=== PATIENT | male | born 1940 | race Caucasian/White ===

== ENCOUNTER → 2023-09-24 07:56 | Outpatient (REF) | payer MEDICARE, SELFPAY ==
[2023-09-24 09:51] LABS: % Basophils 1.1 % (0-2); % Eosinophils 2.6 % (0-6); % Immature Granulocytes 0.3 % (0-0.5); % Lymphocytes 22.8 % (20.5-51.1); % Neutrophils 61.2 % (42.2-75.2); Absolute Basophils 0.1 10^3/uL (0-0.2); Absolute Eosinophils 0.2 10^3/uL (0-0.7); Absolute Lymphocytes 1.4 10^3/uL (1.2-3.4); Absolute Monocytes 0.8 10^3/uL (0.1-0.6); Absolute Neutrophils 3.8 10^3/uL (1.4-6.5); Hematocrit 37.7 % (39.0-52.0); Hemoglobin 11.8 g/dL (13.0-18.0); Mean Corp Hgb Conc. 31.3 g/dL (33.0-37.0); Mean Corpuscular Hgb 25.7 pg (27.0-31.0); Mean Corpuscular Volume 82.1 fL (80.0-94.0); Mean Platelet Volume 10.5 fL (7.4-10.4); Nucleated Red Blood Cells % 0 % (-); Platelet Count 191 10^3/uL (130-400); Red Blood Cell Count 4.59 10^6/uL (4.70-6.10); Red Cell Dist. Width 14.9 % (11.5-14.5); White Blood Cell Count 6.2 10^3/uL (4.8-10.8)
[2023-09-24 10:20] LABS: ALT (SGPT) 18 U/L (0-50); AST (SGOT) 28 U/L (17-59); Albumin 4.1 g/dl (3.5-5.0); Alkaline Phosphatase 89 U/L (38-126); Blood Urea Nitrogen 24 mg/dl (9-20); Calcium 9.1 mg/dl (8.4-10.2); Carbon Dioxide 27 mmol/L (22-30); Chloride 105 mmol/L (98-107); Glucose 116 mg/dl (70-99); HDL Cholesterol 26 mg/dl; LDL Cholesterol, Calculated 65 mg/dl; Sodium 140 mmol/L (135-145); Total Bilirubin 0.6 mg/dl (0.2-1.3); Total Cholesterol 127 mg/dl (50-199); Total Protein 7.3 g/dl (6.3-8.2); Triglyceride 182 mg/dl (10-149); Very Low Density Lipoprotein 36 mg/dl (0-30); eGFR > 60.00
[2023-09-24 11:06] LABS: Potassium 4.5 mmol/L (3.5-5.1)
[2023-09-24 12:13] LABS: Glycohemoglobin (HgbA1c) 7.2 % (4.0-5.6)
[2023-09-27 14:18] LABS: Iron 68 ug/dl (49-181)
[2023-09-27 14:28] LABS: Percent Saturation 20 % (20-50); Total Iron Binding Capacity 330 ug/dl (261-462)
[2023-09-27 15:48] LABS: Folate 8.9 ng/ml (2.76-20); Vitamin B12 189 pg/ml (239-931)
== END ==
LOC: HWLAB 07:56
PROVIDERS: ATTENDING PHYSICIAN Internal Medicine
DX: E11.59 Type 2 diabetes mellitus with other circulatory complications (principal); I10 Essential (primary) hypertension; I25.10 Atherosclerotic heart disease of native coronary artery without angina pectoris
CPT/HCPCS: 36415; 80053; 80061; 82607; 82746; 83036; 83540; 83550; 85025

== ENCOUNTER → 2023-10-29 06:34 | Day surgery (SDC) | payer MEDICARE, SELFPAY ==
[2023-10-29 09:25] LABS: Glucose - Point of Care 118 mg/dl (70-99)
== END ==
LOC: GI 06:34
PROVIDERS: ATTENDING PHYSICIAN Specialist
DX: Z12.11 Encounter for screening for malignant neoplasm of colon (principal); Z86.010 Personal history of colon polyps; K63.5 Polyp of colon
CPT/HCPCS: 45380; 88305; 82962

== ENCOUNTER → 2024-02-03 08:06 | Outpatient (REF) | payer MEDICARE, SELFPAY ==
[2024-02-03 09:52] LABS: ALT (SGPT) 14 U/L (0-50); AST (SGOT) 22 U/L (17-59); Albumin 4.5 g/dl (3.5-5.0); Alkaline Phosphatase 85 U/L (38-126); Direct Bilirubin 0.4 mg/dl (0.0-0.4); Glucose 128 mg/dl (70-99); HDL Cholesterol 29 mg/dl; LDL Cholesterol, Calculated 60 mg/dl; Total Bilirubin 0.8 mg/dl (0.2-1.3); Total Cholesterol 130 mg/dl (50-199); Total Protein 7.5 g/dl (6.3-8.2); Triglyceride 209 mg/dl (10-149); Very Low Density Lipoprotein 41 mg/dl (0-30)
[2024-02-03 14:25] LABS: Glycohemoglobin (HgbA1c) 7.1 % (4.0-5.6)
== END ==
LOC: HWLAB 08:06
PROVIDERS: ATTENDING PHYSICIAN Internal Medicine
DX: E11.59 Type 2 diabetes mellitus with other circulatory complications (principal); Z79.4 Long term (current) use of insulin; E78.5 Hyperlipidemia, unspecified; I10 Essential (primary) hypertension
CPT/HCPCS: 36415; 80061; 80076; 82947; 83036

== ENCOUNTER 2024-03-09 01:27 | Inpatient (IN) | payer MEDICARE, SELFPAY ==
[2024-03-08 21:31] VITALS: BP 162/84
[2024-03-08 21:44] VITALS: BMI 27.7
[2024-03-08 21:45] VITALS: BP 168/79
[2024-03-08 22:00] VITALS: BP 167/77
[2024-03-08 22:11] LABS: % Basophils 1.2 % (0-2); % Eosinophils 1.7 % (0-6); % Immature Granulocytes 0.3 % (0-0.5); % Lymphocytes 24.6 % (20.5-51.1); % Monocytes 11.2 % (1.7-9.3); Absolute Basophils 0.1 10^3/uL (0-0.2); Absolute Eosinophils 0.1 10^3/uL (0-0.7); Absolute Lymphocytes 1.7 10^3/uL (1.2-3.4); Absolute Monocytes 0.8 10^3/uL (0.1-0.6); Absolute Neutrophils 4.2 10^3/uL (1.4-6.5); Hematocrit 37.4 % (39.0-52.0); Hemoglobin 12.1 g/dL (13.0-18.0); Mean Corp Hgb Conc. 32.4 g/dL (33.0-37.0); Mean Corpuscular Hgb 26.2 pg (27.0-31.0); Nucleated Red Blood Cells % 0 % (-); Platelet Count 192 10^3/uL (130-400); Red Blood Cell Count 4.62 10^6/uL (4.70-6.10); Red Cell Dist. Width 15.8 % (11.5-14.5); White Blood Cell Count 6.9 10^3/uL (4.8-10.8)
[2024-03-08 22:27] LABS: ALT (SGPT) 16 U/L (0-50); AST (SGOT) 23 U/L (17-59); Albumin 4.7 g/dl (3.5-5.0); Alkaline Phosphatase 82 U/L (38-126); Blood Urea Nitrogen 26 mg/dl (9-20); Calcium 9.5 mg/dl (8.4-10.2); Carbon Dioxide 23 mmol/L (22-30); Chloride 105 mmol/L (98-107); Estimated Creatinine Clearance 49 ml/min; Glucose 183 mg/dl (70-99); Potassium 4.6 mmol/L (3.5-5.1); Sodium 139 mmol/L (135-145); Total Bilirubin 0.5 mg/dl (0.2-1.3); Total Protein 7.6 g/dl (6.3-8.2); eGFR > 60.00
[2024-03-08 22:40] LABS: Troponin I 0.195 ng/ml
[2024-03-08 23:00] VITALS: BP 161/78
--- NOTE | 2024-03-08 23:19 | ED.GENMED ---
History of Present Illness
<Sandy Bustamante MD, Resident - Last Filed: 03/08/24 23:55>
General
Chief Complaint: Cardiac Symptoms
Source: patient and spouse
Time Seen by Provider: 03/08/24 22:43
History of Present Illness
History of Present Illness:
83-year-old male, Mr. Elijah John with past medical history significant for CAD, CABG X4, hypertension, hyperlipidemia, diabetes, presented to the ER reporting symptoms of indigestion- belching, dyspepsia. Patient reports that his symptoms
started 1 week ago, no experiences indigestion half an hour after his meal and the last 4 2 to 3 hours. Patient has been taking omeprazole and Pepcid and states he has increased the dose of omeprazole twice daily in the last couple of days.
Patient also mentions that he has been feeling queasy and fatigued. The symptoms get aggravated when lying down flat and relieved when sitting up. No history of chest pain, lightheadedness/dizziness, vision disturbances, palpitations, abdominal
pain, weakness/numbness/tingling. Family history of CAD and CABG in mother, HI in father. Patient is a former smoker.
Past History
<Sandy Bustamante MD, Resident - Last Filed: 03/08/24 23:55>
Past History
ED Past Medical History: CAD, Hypercholesterolemia, IDDM and Other (prostate: takes tamulosin); Negative HI
ED Past Surgical History: Appendectomy, Cardiac (bypass 2003), Orthopedic and Urological
Social History
Tobacco: Former smoker
Alcohol: None
Drug: None
Personal:
Living: with family
Employment: Retired
Family History
Family History: Diabetes
Phy Exam
<Sandy Bustamante MD, Resident - Last Filed: 03/08/24 23:55>
Physical Exam
Physical Exam:
GEN: Well appearing, NAD, WDWN
Eyes: PERRLA, EOMs intact, no scleral icterus
HENT: NCAT, oral mucosa moist, no JVD, no cervical adenopathy.
Lungs: CTAB, no wheezes, rales, rhonchi, normal chest wall excursion
Cardiac: RRR, s1 s2+, no peripheral edema. Radial pulses 2+ bilat
Abdomen: S, NT, ND, NABS, no masses or hepatosplenomegaly
Neuro: AO x 3, no focal deficits to BUE/BLE, normal sensation throughout
Skin: No rashes, petechiae. Normal color, no pallor or jaundice.
Psych: Calm, cooperative, proper hygiene
Scores
<Albino Mcdaniel MD - Last Filed: 03/09/24 14:06>
Heart Score for Chest Pain Patients
STEMI patient?: No
History: Moderately Suspicious
ECG: Normal
Age: >/= 65 years
Risk Factors: >/= 3 Risk Factors or History of CAD
Troponin: >1 - <3 x Normal Limit
Heart Score for Chest Pain Patients: 6
Heart Score Risk: 20.3% MACE over next 6 weeks
Course
<Sandy Bustamante MD, Resident - Last Filed: 03/08/24 23:55>
Orders/Labs/Results
Orders:
Orders
03/08/24 21:22
Electrocardiogram (*1) Urgent
Reason for Study: Chest Pain
EKG- Treatment ONCE
03/08/24 21:59
CMP [Comprehensive Metabolic Panel] Urgent
Complete Blood Count/With Diff Urgent
Troponin I Urgent
03/08/24 23:40
PTT Urgent
Comment: Obtain baseline before beginning heparin infusion if not already collected
Aspirin 243 mg PO DAILY STA
Pharmacy Request to Place See Dose Instructions PO NOW STA
Discontinue all Active Warfarin orders?: Yes
Nursing to Place Non Medication Order As Directed
Physician Order: PTT 6 hours after initial start of Heparin infusion
Above order entered?: Yes
03/08/24 23:45
Heparin 36536 Units/250 ml 25,000 units in 250 ml IV PER PROTOCOL
Weight to be used for heparin protocol in kilograms (kg):: 80.1
Protocol:: Cardiac Tx/Acute Coronary
PTT Goal Range to be used:: PTT 73 to 111 seconds
Order type:: Initial
INITIAL Infusion Dose (UNITS/KG/hr) & then follow protocol:: 12 units/kg/hr
Infusion Dose in UNITS/hr & then follow protocol (UNITS/hr):: 950
INFUSION RATE in mL/hr & then follow protocol (mL/hr):: 9.5
PTT less than or equal to 64 seconds:: Increase rate by 200 units/hr (+ 2 mL/hr)
PTT 64.1 to 72.9 seconds:: Increase rate by 100 units/hr (+ 1 mL/hr)
PTT 73 to 111 seconds:: Target Range. No change in rate.
PTT 111.1 to 130.9 seconds:: Decrease rate by 100 units/hr (- 1 mL/hr)
PTT 131 to 199.9 seconds:: HOLD for 1 hr. Then decrease rate by 200 units/hr (- 2 mL/hr)
PTT greater than or equal to 200 seconds:: HOLD for 2 hrs & Notify Provider. Then decrease by 200 units/hr (-
2 mL/hr)
Lab follow-up:: Each change, PTT q6h until 2 consecutive are therapeutic. Then PTT
daily.
Pharmacy Request to Place See Dose Instructions IV DIRECTED
03/09/24 00:41
Aspirin Chewable [Low Strength Aspirin] 243 mg PO NOW STA
03/09/24 01:08
Admit/Transfer Patient As Directed
Co-Sign Provider:
Level of Care: Inpatient admission
Assign to:: IVU
Physician / Group: Herbert
Diagnosis: ACS / NSTEMI
Reason for Hospitalization: ACS / NSTEMI
Expected length of stay greater than two midnights?: Yes
ELOS- Estimated Length of Stay in days: 3
I certify the patient meets the requirements for IP care: Yes
PRN Pain Medication Management As Directed
May give lesser potent ordered pain med per pt: Yes
preference::
Protocol:: Medication orders for pain may be administered in a
manner that supports deferring to patient preference
when the pt is:
- Requesting an ordered lesser potent pain medication.
Least to most potent pain medications are defined
as: acetaminophen < NSAID < tramadol < opioids
(morphine, oxycodone, hydromorphone).
- Requesting a lesser dose of the same medication IF
ORDERED.
- Requesting a less intrusive route of administration
if both routes are prescribed by the provider (PO <
IV).
03/09/24 01:10
Code Status As Directed
Resuscitation Status: Full Code
03/09/24 01:20
Heparin 4,000 units IV NOW STA
Nursing to Place Non Medication Order As Directed
Physician Order: PTT 6 hours after initial start of Heparin infusion
Above order entered?: Yes
03/09/24 03:04
Acetaminophen [Tylenol] 650 mg PO Q4HPRN PRN
Dextrose 50%-Water [Dextrose 50% Syringe] 12.5 grams IV [id number] PRN
Glucagon [GlucaGen] 1 mg IM PRN PRN
Morphine Sulfate 2 mg IV Q4HPRN PRN
Nitroglycerin Sublingual [Nitrostat (Sublingual)] 0.4 mg SL [id number] PRN
03/09/24 03:04
CARDIOLOGY CONSULT Routine
Consulting Provider: Gallo Sahni
Was physician already notified: Yes
Reason for consult: ACS / NSTEMI
Heparin Protocol- PTT Orders As Directed
PTT per Heparin protocol: -Obtain CBC and baseline PTT - if not already collected.
-Obtain PTT 6 hours from start of infusion. Then, every 6 hours until 2 consecutive
PTT's are therapeutic. Then, PTT Daily.
-With each rate change, obtain PTT every 6 hours until 2 consecutive PTT's are
therapeutic. Then, PTT Daily.
Activity As Directed
Activity Level: Bedrest
Bedside Glucose Monitoring As Directed
Frequency: AC&HS
Additional Instructions:: Change to q6h if pt on TPN, tube feeding or not eating
Bladder Scan As Directed
Follow Bladder Retention/Intermittent Cath Algorithm?: Yes
PRN if no void in __ hours: 6
Frequency: Per Retention Algorithm
If Bladder Scan Result >: 400
then:: Straight cath
EKG with chest pain [ECG as needed] As Directed
ECG as needed for:: Chest Pain
I/O [Intake/ Output] As Directed
Frequency: Per unit guidelines
Notify MD As Directed
Notify physician if: PTT is greater than or equal to 200.
Straight Cath As Directed
Frequency: Per Retention Algorithm
Additional Instructions: straight cath as needed per acute urinary retention algorithm for 24 hrs
Additional Instructions: for bladder scan greater than 400 mL
Vital Signs As Directed
Frequency: Per unit guidelines
Weight As Directed
Frequency: Daily
Oxygen Therapy [O2 Therapy] [RESP] Routine
Titrate/Wean O2 to maintain O2 sat greater than (%): 94
03/09/24 03:47
Basic Metabolic Panel IN AM
Cardiovascular Evaluation IN AM
Glycohemoglobin (HgbA1c) IN AM
Troponin I Q6H
03/09/24 06:00
EKG [Electrocardiogram (*1)] IN AM
Reason for Study: Chest Pain
NPO
Allow oral meds: Yes
Allow clear liquids: Sips of Clears
03/09/24 07:30
Insulin Aspart Corrective Mod [Novolog Flexpen-Moderate Resistance] See Protocol SC AC
03/09/24 08:00
Amlodipine [Norvasc] 10 mg PO DAILY
Aspirin Chewable [Low Strength Aspirin] 81 mg PO DAILY
Aspirin Low Dose EC [Aspir Low (Enteric Coated)] 81 mg PO DAILY
Tamsulosin [Flomax] 0.4 mg PO DAILY
03/09/24 08:34
Troponin I Q6H
03/09/24 15:04
Troponin I Q6H
03/09/24 22:00
Atorvastatin [Lipitor] 40 mg PO HS
Insulin Glargine Lantus [Lantus] 60 units SC HS
03/11/24 06:00
Complete Blood Count/No Diff Q2D
Comment: notify provider: Platelet count < 130,000 or decrease by 50% from baseline
03/13/24 06:00
Complete Blood Count/No Diff Q2D
Comment: notify provider: Platelet count < 130,000 or decrease by 50% from baseline
03/15/24 06:00
Complete Blood Count/No Diff Q2D
Comment: notify provider: Platelet count < 130,000 or decrease by 50% from baseline
03/17/24 06:00
Complete Blood Count/No Diff Q2D
Comment: notify provider: Platelet count < 130,000 or decrease by 50% from baseline
03/19/24 06:00
Complete Blood Count/No Diff Q2D
Comment: notify provider: Platelet count < 130,000 or decrease by 50% from baseline
03/21/24 06:00
Complete Blood Count/No Diff Q2D
Comment: notify provider: Platelet count < 130,000 or decrease by 50% from baseline
03/23/24 06:00
Complete Blood Count/No Diff Q2D
Comment: notify provider: Platelet count < 130,000 or decrease by 50% from baseline
03/25/24 06:00
Complete Blood Count/No Diff Q2D
Comment: notify provider: Platelet count < 130,000 or decrease by 50% from baseline
Abnormal Lab Results
03/08/24 03/09/24
21:59 00:51
RBC 4.62 L 10^6/uL
(4.70-6.10)
Hgb 12.1 L g/dL
(13.0-18.0)
Hct 37.4 L %
(39.0-52.0)
MCH 26.2 L pg
(27.0-31.0)
MCHC 32.4 L g/dL
(33.0-37.0)
RDW 15.8 H %
(11.5-14.5)
Absolute Monos (auto) 0.8 H 10^3/uL
(0.1-0.6)
Monocytes % 11.2 H %
(1.7-9.3)
APTT 38.5 H Sec
(23.4-35.0)
BUN 26 H mg/dl
(9-20)
Glucose 183 H mg/dl
(70-99)
Troponin I 0.195 H* ng/ml
03/08/24 21:59
03/08/24 21:59
Vital Signs
Initial and Last Documented VS:
Initial Vital Signs
Temp Pulse Resp BP Pulse Ox
97.7 F 74 20 162/84 100
03/08/24 21:31 03/08/24 21:31 03/08/24 21:31 03/08/24 21:31 03/08/24 21:31
Last Documented Vital Signs
Temp Pulse Resp BP Pulse Ox
98.5 F 82 20 137/74 95
03/09/24 12:21 03/09/24 12:21 03/09/24 07:14 03/09/24 12:21 03/09/24 12:21
<Albino Mcdaniel MD - Last Filed: 03/09/24 14:06>
Orders/Labs/Results
Orders:
Orders
03/08/24 21:22
Electrocardiogram (*1) Urgent
Reason for Study: Chest Pain
EKG- Treatment ONCE
03/08/24 21:59
CMP [Comprehensive Metabolic Panel] Urgent
Complete Blood Count/With Diff Urgent
Troponin I Urgent
03/08/24 23:40
PTT Urgent
Comment: Obtain baseline before beginning heparin infusion if not already collected
Aspirin 243 mg PO DAILY STA
Pharmacy Request to Place See Dose Instructions PO NOW STA
Discontinue all Active Warfarin orders?: Yes
Nursing to Place Non Medication Order As Directed
Physician Order: PTT 6 hours after initial start of Heparin infusion
Above order entered?: Yes
03/08/24 23:45
Heparin 84524 Units/250 ml 25,000 units in 250 ml IV PER PROTOCOL
Weight to be used for heparin protocol in kilograms (kg):: 80.1
Protocol:: Cardiac Tx/Acute Coronary
PTT Goal Range to be used:: PTT 73 to 111 seconds
Order type:: Initial
INITIAL Infusion Dose (UNITS/KG/hr) & then follow protocol:: 12 units/kg/hr
Infusion Dose in UNITS/hr & then follow protocol (UNITS/hr):: 950
INFUSION RATE in mL/hr & then follow protocol (mL/hr):: 9.5
PTT less than or equal to 64 seconds:: Increase rate by 200 units/hr (+ 2 mL/hr)
PTT 64.1 to 72.9 seconds:: Increase rate by 100 units/hr (+ 1 mL/hr)
PTT 73 to 111 seconds:: Target Range. No change in rate.
PTT 111.1 to 130.9 seconds:: Decrease rate by 100 units/hr (- 1 mL/hr)
PTT 131 to 199.9 seconds:: HOLD for 1 hr. Then decrease rate by 200 units/hr (- 2 mL/hr)
PTT greater than or equal to 200 seconds:: HOLD for 2 hrs & Notify Provider. Then decrease by 200 units/hr (-
2 mL/hr)
Lab follow-up:: Each change, PTT q6h until 2 consecutive are therapeutic. Then PTT
daily.
Pharmacy Request to Place See Dose Instructions IV DIRECTED
03/09/24 00:41
Aspirin Chewable [Low Strength Aspirin] 243 mg PO NOW STA
03/09/24 01:08
Admit/Transfer Patient As Directed
Co-Sign Provider:
Level of Care: Inpatient admission
Assign to:: IVU
Physician / Group: Herbert
Diagnosis: ACS / NSTEMI
Reason for Hospitalization: ACS / NSTEMI
Expected length of stay greater than two midnights?: Yes
ELOS- Estimated Length of Stay in days: 3
I certify the patient meets the requirements for IP care: Yes
PRN Pain Medication Management As Directed
May give lesser potent ordered pain med per pt: Yes
preference::
Protocol:: Medication orders for pain may be administered in a
manner that supports deferring to patient preference
when the pt is:
- Requesting an ordered lesser potent pain medication.
Least to most potent pain medications are defined
as: acetaminophen < NSAID < tramadol < opioids
(morphine, oxycodone, hydromorphone).
- Requesting a lesser dose of the same medication IF
ORDERED.
- Requesting a less intrusive route of administration
if both routes are prescribed by the provider (PO <
IV).
03/09/24 01:10
Code Status As Directed
Resuscitation Status: Full Code
03/09/24 01:20
Heparin 4,000 units IV NOW STA
Nursing to Place Non Medication Order As Directed
Physician Order: PTT 6 hours after initial start of Heparin infusion
Above order entered?: Yes
03/09/24 03:04
Acetaminophen [Tylenol] 650 mg PO Q4HPRN PRN
Dextrose 50%-Water [Dextrose 50% Syringe] 12.5 grams IV [id number] PRN
Glucagon [GlucaGen] 1 mg IM PRN PRN
Morphine Sulfate 2 mg IV Q4HPRN PRN
Nitroglycerin Sublingual [Nitrostat (Sublingual)] 0.4 mg SL [id number] PRN
03/09/24 03:04
CARDIOLOGY CONSULT Routine
Consulting Provider: Gallo Sahni
Was physician already notified: Yes
Reason for consult: ACS / NSTEMI
Heparin Protocol- PTT Orders As Directed
PTT per Heparin protocol: -Obtain CBC and baseline PTT - if not already collected.
-Obtain PTT 6 hours from start of infusion. Then, every 6 hours until 2 consecutive
PTT's are therapeutic. Then, PTT Daily.
-With each rate change, obtain PTT every 6 hours until 2 consecutive PTT's are
therapeutic. Then, PTT Daily.
Activity As Directed
Activity Level: Bedrest
Bedside Glucose Monitoring As Directed
Frequency: AC&HS
Additional Instructions:: Change to q6h if pt on TPN, tube feeding or not eating
Bladder Scan As Directed
Follow Bladder Retention/Intermittent Cath Algorithm?: Yes
PRN if no void in __ hours: 6
Frequency: Per Retention Algorithm
If Bladder Scan Result >: 400
then:: Straight cath
EKG with chest pain [ECG as needed] As Directed
ECG as needed for:: Chest Pain
I/O [Intake/ Output] As Directed
Frequency: Per unit guidelines
Notify MD As Directed
Notify physician if: PTT is greater than or equal to 200.
Straight Cath As Directed
Frequency: Per Retention Algorithm
Additional Instructions: straight cath as needed per acute urinary retention algorithm for 24 hrs
Additional Instructions: for bladder scan greater than 400 mL
Vital Signs As Directed
Frequency: Per unit guidelines
Weight As Directed
Frequency: Daily
Oxygen Therapy [O2 Therapy] [RESP] Routine
Titrate/Wean O2 to maintain O2 sat greater than (%): 94
03/09/24 03:47
Basic Metabolic Panel IN AM
Cardiovascular Evaluation IN AM
Glycohemoglobin (HgbA1c) IN AM
Troponin I Q6H
03/09/24 06:00
EKG [Electrocardiogram (*1)] IN AM
Reason for Study: Chest Pain
NPO
Allow oral meds: Yes
Allow clear liquids: Sips of Clears
03/09/24 07:30
Insulin Aspart Corrective Mod [Novolog Flexpen-Moderate Resistance] See Protocol SC AC
03/09/24 08:00
Amlodipine [Norvasc] 10 mg PO DAILY
Aspirin Chewable [Low Strength Aspirin] 81 mg PO DAILY
Aspirin Low Dose EC [Aspir Low (Enteric Coated)] 81 mg PO DAILY
Tamsulosin [Flomax] 0.4 mg PO DAILY
03/09/24 08:34
Troponin I Q6H
03/09/24 15:04
Troponin I Q6H
03/09/24 22:00
Atorvastatin [Lipitor] 40 mg PO HS
Insulin Glargine Lantus [Lantus] 60 units SC HS
03/11/24 06:00
Complete Blood Count/No Diff Q2D
Comment: notify provider: Platelet count < 130,000 or decrease by 50% from baseline
03/13/24 06:00
Complete Blood Count/No Diff Q2D
Comment: notify provider: Platelet count < 130,000 or decrease by 50% from baseline
03/15/24 06:00
Complete Blood Count/No Diff Q2D
Comment: notify provider: Platelet count < 130,000 or decrease by 50% from baseline
03/17/24 06:00
Complete Blood Count/No Diff Q2D
Comment: notify provider: Platelet count < 130,000 or decrease by 50% from baseline
03/19/24 06:00
Complete Blood Count/No Diff Q2D
Comment: notify provider: Platelet count < 130,000 or decrease by 50% from baseline
03/21/24 06:00
Complete Blood Count/No Diff Q2D
Comment: notify provider: Platelet count < 130,000 or decrease by 50% from baseline
03/23/24 06:00
Complete Blood Count/No Diff Q2D
Comment: notify provider: Platelet count < 130,000 or decrease by 50% from baseline
03/25/24 06:00
Complete Blood Count/No Diff Q2D
Comment: notify provider: Platelet count < 130,000 or decrease by 50% from baseline
Abnormal Lab Results
03/08/24 03/09/24
21:59 00:51
RBC 4.62 L 10^6/uL
(4.70-6.10)
Hgb 12.1 L g/dL
(13.0-18.0)
Hct 37.4 L %
(39.0-52.0)
MCH 26.2 L pg
(27.0-31.0)
MCHC 32.4 L g/dL
(33.0-37.0)
RDW 15.8 H %
(11.5-14.5)
Absolute Monos (auto) 0.8 H 10^3/uL
(0.1-0.6)
Monocytes % 11.2 H %
(1.7-9.3)
APTT 38.5 H Sec
(23.4-35.0)
BUN 26 H mg/dl
(9-20)
Glucose 183 H mg/dl
(70-99)
Troponin I 0.195 H* ng/ml
03/08/24 21:59
03/08/24 21:59
Vital Signs
Initial and Last Documented VS:
Initial Vital Signs
Temp Pulse Resp BP Pulse Ox
97.7 F 74 20 162/84 100
03/08/24 21:31 03/08/24 21:31 03/08/24 21:31 03/08/24 21:31 03/08/24 21:31
Last Documented Vital Signs
Temp Pulse Resp BP Pulse Ox
98.5 F 82 20 137/74 95
03/09/24 12:21 03/09/24 12:21 03/09/24 07:14 03/09/24 12:21 03/09/24 12:21
<Sandy Bustamante MD, Resident - Last Filed: 03/08/24 23:55>
MDM/Problems Addressed
Differential Diagnosis Includes:
STEMI versus NSTEMI versus GERD versus gastritis versus PUD.
MDM/Problems Addressed:
Patient is hypertensive at presentation.
Troponins elevated at 0.195
NSTEMI
Patient started on aspirin to 243 mg, patient states he took 1 baby aspirin in the morning today.
Heparin drip started.
N.p.o.
Cardiology consulted, possible cath tomorrow
Hospitalist notified.
<Sandy Bustamante MD, Resident - Last Filed: 03/08/24 23:55>
*Critical Care Note
Total Time (30-74mins, 75-104mins- exclusive of procedures): Not Applicable
ED Attending Note
<Sandy Bustamante MD, Resident - Last Filed: 03/08/24 23:55>
-
Portions of this chart may have been created with voice recognition software.� Occasional wrong word or��sound alike� substitutions may have occurred due to the inherent limitations of voice recognition software.
<Albino Mcdaniel MD - Last Filed: 03/09/24 14:06>
ED Attending Note
Patient seen and examined by attending physician: Yes
ED Attending Note:
Patient with history of CABG 20 years ago, presents to ED secondary to intermittent chest pain over the past 1 week, but worse tonight. Chest pain described as indigestion, in the middle of chest, with radiation to throat, associated with shortness
of breath and clammy appearance. Symptoms appear to be brought on after meals. However, this morning, indigestion sensation started prior to leaving the house to attend [id number], and returned after the show. Patient told his , that he did
not feel well at that time, and his found patient to be uncomfortable with clammy appearance and pale appearing. At the time of evaluation ED, patient states that his symptoms have resolved. Denies fever or chills. Denies recent illness.
Denies recent change in medications or diet. Denies recent travel or surgery. Denies leg pain or swelling.
Physical Exam
General: no apparent distress, not acutely ill. afebrile
Head: nc/at. eomi
Neck: supple. no meningeal signs.
Heart: s1/s2 regular rate and rhythm, no murmur. equal radial pulses.
Lungs: no acute respiratory distress. clear bilaterally
Abdomen: normal bowel sounds. not tender.
Neuro: alert and oriented. no focal neurological deficits
Skin: no rash
Psychiatric: well kept. interactive and cooperative
Extremities: no edema. no calf tenderness.
History and exam concerning for unstable angina, with history of coronary artery disease. Blood work noted, significant for normal troponin.
Discussed with on-call doctor of pharmacy, Dr. Sahni. Patient will be admitted on heparin protocol.
Discharge Plan
Departure
Patient Disposition: Admit
Date of Disposition: 03/08/24
Time of Disposition: 23:38
Admit to: Telemetry
Presentation/result/management discussed w/ accepting MD/DO: Hospitalist
Patient with high blood pressure during this ER visit?: Yes
Condition: Fair
Discharge Problem:
NSTEMI
Interventions
Interventions:
*Risk Screen - Suicide Last Done: 03/09/24 03:07
*General Assessment Last Done: 03/08/24 21:46
*Neglect/Abuse Screening Last Done: 03/08/24 21:31
ED- Fall Risk Assessment Last Done: 03/08/24 21:46
*ED COVID-19 Vaccine History Last Done: 03/09/24 03:07
*Nursing Disposition Last Done: 03/09/24 02:50
ED- Pulmonary Assessment Last Done: 03/08/24 21:46
ED- Cardiac Assessment Last Done: 03/08/24 21:46
Discharge Date and Time
Discharge Date/Time: 03/09/24 02:50
[2024-03-08 23:49] VITALS: BMI 26.9
[2024-03-09] VITALS (20 sets, daily range): BP systolic 93–176; BP diastolic 61–83; BMI 26.8
[2024-03-09] MEDS: LOW STRENGTH ASPIRIN 243 MG PO (00:47)
--- NOTE | 2024-03-09 01:12 | HPS.HSE ---
Family Physician
-
Family Physician: Jacobo Blood
Chief Complaint
-
Indigestion
History of Present Illness
Patient is an 83y M with PMH significant for ASCVD, hypertension and DM-II who presents to ED complaining of severe indigestion. Patient states that he has had worsening symptoms of indigestion for the past week or so. he describes discomfort
in the upper chest / throat area that tends to be worse after eating. He describes frequent belching without significant improvement in his symptoms. He admits to feeling somewhat SOB, clammy / sweaty during these episodes. He denies N/V,
syncope, etc.
Patient felt poorly today and his symptoms worsened after eating a turkey sandwich for dinner this evening.
He presented to the ED for further evaluation and is noted to have elevated troponin, changes in his EKG. Symptoms have since improved here in the ED.
Patient has a prior h/o CABG x 4 (2003) but denies any prior history of similar symptoms to this.
His most recent medication change was an increase in his amlodipine dose from 5mg daily to 10mg daily. This was about 3 weeks ago.
Medical History
Past Medical History
Past Medical History: Reports Other
Additional Past Medical History:
ASCVD
Hypertension
DM-II
Post-Op A-Fib (After CABG)
GERD / Hiatal Hernia / Schatzki's Ring
Colon Polyps
BPH
Past Surgical History: Reports Other
Additional Past Surgical History:
CABG x 4 (2003)
Left Testicular Torsion Surgery
Appendectomy
Cataracts
Robotic Partial Prostatectomy
Social History
Tobacco: Former Smoker (Quit smoking 40 years ago. Approx 20 pack years total.)
Alcohol: Occasional
Drug: None
Family History
Family History: Other (Mother / Father: CAD)
Allergies / Home Medications
Allergies reflects when Allergies were last updated in [employer].
Home Medications with original date entered in [employer]
Allergy/Medication List:
Allergies
Allergy/AdvReac Type Severity Reaction Status Date / Time
NKA - No Known Allergies Allergy Unknown Uncoded 03/08/24 21:34
Home Medications
aspirin 81 mg tablet,delayed release 81 mg PO DAILY 05/20/14
insulin glargine 100 unit/mL subcutaneous solution (Lantus U-100 Insulin) 70 units SC HS 05/20/14
omeprazole 20 mg capsule,delayed release 20 mg PO DAILY 05/20/14
amlodipine 5 mg tablet 10 mg PO DAILY 07/17/17
atorvastatin 20 mg tablet 10 mg PO HS 05/11/21
fluticasone furoate 100 mcg-vilanterol 25 mcg/dose inhalation powder (Breo Ellipta) 1 puff inhalation R DAILYPRN PRN sob 05/11/21
fluticasone propionate 50 mcg/actuation nasal spray,suspension 2 spray intranasal DAILYPRN PRN allergies 05/11/21
metformin 500 mg tablet,extended release 24 hr 1,000 mg PO BID 05/11/21
tamsulosin 0.4 mg capsule 0.4 mg PO DAILY 05/11/21
bethanechol chloride 5 mg tablet 5 mg PO BID 03/09/24
meloxicam 15 mg tablet 15 mg PO DAILY 03/09/24
vit C 250 mg-E 90 mg-zinc 40 mg-copper 1 [id number] chew tablet (PreserVision AREDS-2) 1 tab PO QAM AND QPM 03/09/24
Review of Systems
-
History Source: Patient
A 12 point ROS was completed and negative except as noted: Yes
Constitutional: Denies Fever or Chills
EENT: Denies Sore Throat
Respiratory: Reports Trouble Breathing; Denies Cough
Cardiac: Reports Chest Pain; Denies Diaphoresis, Palpitations or Syncope
Abdomen/GI: Denies Abdominal Pain, Nausea, Vomiting or Diarrhea
: Denies Dysuria, Frequency or Flank Pain
Musculoskeletal: Denies Edema
Neurological: Denies Dizzy or Headache
Psych: Denies Depression or Anxiety
Physical Exam
Vital Signs
Vital Signs
Temp Pulse Resp BP Pulse Ox
97.7 F 83 14 167/77 96
03/08/24 21:31 03/08/24 22:30 03/08/24 22:30 03/08/24 22:00 03/08/24 22:30
Physical Exam
General: Other (83y M in no acute distress.)
HEENT: Moist mucous membranes and PERRLA
Respiratory: Clear; No Wheezes, Rales or Rhonchi
Cardiac: S1/S2 and Regular Rhythm; No Murmur
GI: Soft, Non Tender, Non Distended and Normal Bowel Sounds
Musculoskeletal: No Clubbing, No Cyanosis and No Edema
Neuro: AO x 3
Laboratory Results
-
03/08/24 21:59
03/08/24 21:59
Laboratory Results
Total Bilirubin 0.5 mg/dl (0.2-1.3) 03/08/24 21:59
AST 23 U/L (17-59) 03/08/24 21:59
ALT 16 U/L (0-50) 03/08/24 21:59
Alkaline Phosphatase 82 U/L (38-126) 03/08/24 21:59
Troponin I 0.195 ng/ml H* 03/08/24 21:59
Impression/Plan
-
A/P: Patient is an 83y M with PMH significant for ASCVD, HTN and DM-II who presents to ED complaining of indigestion / chest pain.
ACS / NSTEMI
- Admit for further evaluation and treatment.
- EKG with changes from prior (new RBBB, non-specific T wave changes), troponin elevated on initial set at 0.195.
- Cardiology evaluation.
- Given h/o CAD plan is for heparin infusion overnight and probable cath in the AM.
- Follow for any new / recurrent chest discomfort.
- SL NTG / IV morphine PRN.
- ASA daily. Increase statin to higher intensity dosing.
- Check AM lipids.
Benign Hypertension
- Stable. Continue amlodipine with holding parameters.
- Adjust regimen prior to discharge for normotension.
DM-II
- Stable. Continue basal insulin at slightly decreased dose.
- Hold metformin given plan for probable cath.
- Follow glucose and cover with SSI as needed.
- Update A1C.
GERD / Hiatal Hernia
Schatzki's Ring
- Significant GI history as well.
- Symptoms worse after eating.
- IV PPI daily for now.
- If cardiac evaluation proves unremarkable would consider GI eval / possible endoscopy.
COPD without Acute Exacerbation
- Stable. No active wheezing.
- Has home inhaler which he notes he rarely uses.
- Follow for any new symptoms / complaints.
BPH
- Stable. Patient notes that he has been found to have a degree of urinary retention - followed by Dr. Serra.
- He is s/p partial prostatectomy and notes that there are plans for Urology intervention / procedure in 2 weeks.
- Follow bladder scan protocols during stay.
- Continue tamsulosin.
- If coronary stent is placed - patient will require DAPT and any Urologic intervention will likely need to be delayed for a time.
DVT Prophylaxis: On IV Heparin
Code Status: Full
[2024-03-09 01:26] LABS: APTT 38.5 Sec (23.4-35.0)
[2024-03-09] MEDS: HEPARIN 4000 UNITS IV (01:37)
[2024-03-09] MEDS: HEPARIN 25000 UNITS/250 ML IV (01:45)
[2024-03-09 04:41] LABS: Troponin I 0.759 ng/ml
[2024-03-09 04:51] LABS: Blood Urea Nitrogen 27 mg/dl (9-20); Calcium 9.2 mg/dl (8.4-10.2); Carbon Dioxide 24 mmol/L (22-30); Chloride 106 mmol/L (98-107); Estimated Creatinine Clearance 54 ml/min; Glucose 99 mg/dl (70-99); HDL Cholesterol 30 mg/dl; LDL Cholesterol, Calculated 62 mg/dl; Potassium 4.7 mmol/L (3.5-5.1); Sodium 139 mmol/L (135-145); Total Cholesterol 133 mg/dl (50-199); Triglyceride 205 mg/dl (10-149); Very Low Density Lipoprotein 41 mg/dl (0-30); eGFR > 60.00
--- NOTE | 2024-03-09 05:07 | PTCARENOTE ---
Rec'd pt from the ED at 0300 with heparin gtt at 950 units per hour and was able to stand and pivot from stretcher to bed. PT AAO*3. Pt maintained on bedrest to prevent CP. Patient denies any pain and agreed to report RN immediately for change in
pain status. Pt agreed to call for staff assistance before getting out of bed. Pt resting with call godinez in reach.
--- NOTE | 2024-03-09 07:55 | PTCARENOTE ---
Received patient this morning resting in bed. IV heparin infusing at 950 units/hr, NPO this AM x meds. Patient denies any chest pain or sob this morning. Instructed to remain in bed, call godinez within reach.
--- NOTE | 2024-03-09 08:10 | CON.CAR ---
Addendum entered and electronically signed by Bernard Akhtar MD 03/09/24 12:42:
I saw and examined the patient.
The SECONDARY HISTORY TEACHER's note was reviewed and I agree with the note.
Comment: 83-year-old male (formerly known to Dr. Ramirez, transferring care to Dr. Pablo) with coronary artery disease (CABG x 4, 2003), hypertension, dyslipidemia, bifascicular block (2021), NIDDM, COPD, and former smoker who presented to the
emergency department with a chief complaint of indigestion. He has been having symptoms consistent wiht prior to his CABG. Additionally, troponin is elevated and going up; we discussed coronary angiography which he is agreeable to.
- coronary angiography
- further recs to follow
Original Note:
Consultation
Consultation Request
Date/Time Consultation Requested: 03/09/2024 03:00
Date/Time Consultation Performed: 03/09/2024 08:00
Requesting Provider: Dr. Godinez
Performing Provider: JILLIAN Bass for Dr. Akhtar
Reason for Consultation: NSTEMI
Medical History
-
Chief Complaint: Indigestion
History of Present Illness:
Elijah Bronson is an 83-year-old male (formerly known to Dr. Ramirez, transferring care to Dr. Pablo) with coronary artery disease (CABG x 4, 2003), hypertension, dyslipidemia, bifascicular block (2021), NIDDM, COPD, and former smoker who
presented to the emergency department with a chief complaint of indigestion. He describes his indigestion as a discomfort. It is across his chest and in his epigastric area. It usually starts 1 hour after eating. It lasts about 1 hour and will
spontaneously resolve. He denies associated symptoms of nausea and vomiting but reports feeling clammy when he is belching. He does endorse worsening dyspnea on exertion that has been ongoing for 1 month. This was his chief complaint prior to his
CABG in 2003. It is most noticeable when he is cutting the grass and carrying or moving something heavy. He was found to have an abnormal troponin. Troponin on arrival 0.195. Troponin this morning 0.759.
Past Medical History
Past Medical History: CAD (Prior CABG x 4), COPD, HTN, Hypercholesterolemia and NIDDM
Past Surgical History: Appendectomy, Cardiac (CABG) and Urological (Prostatectomy)
Social History
Tobacco: Former Smoker
Alcohol: Occasional
Drug: None
Personal:
Living: With Family
Employment: Retired
Family History
Family History: Reviewed & Not Pertinent
Allergies / Home Medications
Allergy/AdvReac Type Severity Reaction Status Date / Time
NKA - No Known Allergies Allergy Unknown Uncoded 03/08/24 21:34
�Medication �Instructions �Recorded �Confirmed �Type
aspirin 81 mg tablet,delayed 81 mg PO DAILY 05/20/14 03/09/24 History
release
insulin glargine 100 unit/mL 70 units SC 05/20/14 03/09/24 History
subcutaneous solution (Lantus
U-100 Insulin)
omeprazole 20 mg capsule,delayed 20 mg PO DAILY 05/20/14 03/09/24 History
release
amlodipine 5 mg tablet 10 mg PO DAILY 07/17/17 03/09/24 History
atorvastatin 20 mg tablet 10 mg PO HS 05/11/21 03/09/24 History
fluticasone furoate 100 1 puff inhalation R DAILYPRN PRN 05/11/21 03/09/24 History
mcg-vilanterol 25 mcg/dose sob
inhalation powder (Breo Ellipta)
fluticasone propionate 50 2 spray intranasal DAILYPRN PRN 05/11/21 03/09/24 History
mcg/actuation nasal allergies
spray,suspension
metformin 500 mg tablet,extended 1,000 mg PO BID 05/11/21 03/09/24 History
release 24 hr
tamsulosin 0.4 mg capsule 0.4 mg PO DAILY 05/11/21 03/09/24 History
bethanechol chloride 5 mg tablet 5 mg PO BID 03/09/24 03/09/24 History
meloxicam 15 mg tablet 15 mg PO DAILY 03/09/24 03/09/24 History
vit C 250 mg-E 90 mg-zinc 40 1 tab PO QAM AND QPM 03/09/24 03/09/24 History
mg-copper 1 [id number] chew
tablet (PreserVision AREDS-2)
Review of Systems
-
History Source: Patient
All other systems: Negative unless noted
Constitutional: Fatigue
EENT: No Symptoms
Respiratory: Trouble Breathing (AGEE)
Cardiac: No Symptoms
Abdomen/GI: Other (See HPI)
: No Symptoms
Musculoskeletal: No Symptoms
Skin: No Symptoms
Neurological: No Symptoms
Endocrine: No Symptoms
Hematologic/Lymphatic: No Symptoms
Physical Exam
Vital Signs
Temp Pulse Resp BP Pulse Ox
98.2 F 72 20 139/71 97
03/09/24 07:14 03/09/24 07:17 03/09/24 07:14 03/09/24 07:17 03/09/24 07:14
Lab Results
03/08/24 21:59
03/09/24 03:47
Troponin I 0.759 ng/ml H* D 03/09/24 03:47
Physical Exam
General: Well Developed, Well Nourished and No Apparent Distress
HEENT: Normocephalic, Anicteric and Moist Mucous Membranes
Respiratory: Clear and Non Labored Respirations
Cardiac: S1/S2 and Regular Rhythm
Breast: Deferred by me
GI: Soft, Non Tender, Non Distended and Normal Bowel Sounds
Rectal: Deferred by Provider
Genito-urinary: No Costovertebral Tender
Musculoskeletal: No Clubbing, No Cyanosis and No Edema
Skin: Warm and Dry
Neuro: AO x 3
Hematologic/Lymphatic: No Lymphadenopathy
Psych: Calm
Impression / Plan
-
BACKGROUND: 83 with CAD (CABG x4, 2003), hypertension, dyslipidemia, bifascicular block (2021), NIDDM, COPD, and former smoker who presented to the emergency department with a chief complaint of indigestion. He was found to have an abnormal troponin.
NSTEMI
-Symptom free currently
-On ASA & heparin gtt
-Troponin not yet peaked, currently 0.759
-Cardiac catheterization today
-Echocardiogram
CAD
-CABG 2003
-Continue aspirin & statin
Hypertension, stable, mild cLVH on prior echocardiogram
Mildly dilated aortic root (3.8 cm, 2020)
HLD, LDL at goal (62)
NIDDM, Hgba1c 7.1%, per primary
COPD
Former smoker
Data Reviewed
-
EKG: Report Reviewed by me (Sinus rhythm, RBBB, rate 73; sinus rhythm, RBBB, rate 67)
Labs: Labs Reviewed by me
Old Records: Reviewed (Outpatient cardiology records)
[2024-03-09 08:32] LABS: Glucose - Point of Care 68 mg/dl (70-99)
[2024-03-09] MEDS: DEXTROSE 50% SYRINGE 12.5 GRAMS IV (08:39)
[2024-03-09] MEDS: FLUSH (NSS) 3 FLUSH IV (08:40)
[2024-03-09] MEDS: PROTONIX IV 40 MG IV (08:41)
[2024-03-09] MEDS: NORVASC 10 MG PO (08:41)
[2024-03-09] MEDS: FLOMAX 0.4 MG PO (08:41)
[2024-03-09] MEDS: NSS (PRESERVATIVE FREE) 10 ML IV (08:41)
[2024-03-09] MEDS: ASPIR LOW (ENTERIC COATED) 81 MG PO (08:50)
[2024-03-09 09:12] LABS: APTT 70.8 Sec (23.4-35.0)
[2024-03-09 09:21] LABS: Glucose - Point of Care 122 mg/dl (70-99)
--- NOTE | 2024-03-09 10:09 | W.PN.HOSP.TC ---
Today's Communication/Plan
-
For cardiac catheterization today
Assessment / Plan
Assessment / Plan
83y M with PMH significant for ASCVD, HTN and DM-II who presents to ED complaining of indigestion / chest pain.
ACS / NSTEMI
-Appreciate cardiology input, for cardiac catheterization today
-Continue aspirin, SL NTG, increased statin
Benign Hypertension
- Stable. Continue amlodipine
DM-II
- Stable. Continue basal insulin at slightly decreased dose.
- Hold metformin given plan for probable cath.
GERD / Hiatal Hernia
Schatzki's Ring
- Significant GI history as well. Symptoms worse after eating.
- IV PPI daily for now.
COPD without Acute Exacerbation
- Stable
BPH
- Stable. Patient notes that he has been found to have a degree of urinary retention - followed by Dr. Serra.
- He is s/p partial prostatectomy and notes that there are plans for Urology intervention / procedure in 2 weeks.
- Follow bladder scan protocols during stay. Continue tamsulosin.
- If coronary stent is placed - patient will require DAPT and any Urologic intervention will likely need to be delayed for a time.
DVT Prophylaxis: On IV Heparin
Code Status: Full
Physical Exam
General: No acute distress
HEENT: Normocephalic, Atraumatic, EOMI, MMM
Respiratory: Clear to Auscultation bilaterally
Cardiac: Normal S1/S2, Regular Rate and Rhythm
GI: Soft, Nontender, Nondistended, Normal Bowel Sounds
Extremities: No Clubbing, Cyanosis, or Edema
Neuro: Nonfocal/Grossly Intact
Psych: Calm, Cooperative
Derm: No Visible lesions
Anticipated Discharge: 24 - 48 hours
Subjective/Interval History
-
Date of Service: March 09, 2024
No recurrence of indigestion. No shortness of breath, nausea, or vomiting.
Objective Data
-
Labs:
Laboratory Results
03/08/24 03/09/24 03/09/24
21:59 00:51 03:47
WBC 6.9
Hgb 12.1 L
Hct 37.4 L
Plt Count 192
APTT 38.5 H
Sodium 139 139
Potassium 4.6 4.7
Chloride 105 106
Carbon Dioxide 23 24
BUN 26 H 27 H
Creatinine 1.1 1.0
Glucose 183 H 99
Calcium 9.5 9.2
Total Bilirubin 0.5
AST 23
ALT 16
Alkaline Phosphatase 82
03/09/24
08:34
WBC
Hgb
Hct
Plt Count
APTT 70.8 H
Sodium
Potassium
Chloride
Carbon Dioxide
BUN
Creatinine
Glucose
Calcium
Total Bilirubin
AST
ALT
Alkaline Phosphatase
Vital Signs:
Vital Signs
Temp Pulse Resp BP Pulse Ox
98.2 F 72 20 139/71 97
03/09/24 07:14 03/09/24 07:17 03/09/24 07:14 03/09/24 07:17 03/09/24 07:14
[2024-03-09 10:44] LABS: Glycohemoglobin (HgbA1c) 6.6 % (4.0-5.6)
--- NOTE | 2024-03-09 11:48 | CARDSERVLU ---
Echocardiogram with [facility] completed after protocol screening completed. Allergies verified.
Patent IV site: R AC___
IV site flushed with 0.9% NaCl pre and post administration.
Diluted bolus method utilized to enhance visualization of ventricular arciniega.
Total volume given: __3__ mL
Patient tolerated all procedures well without complications.
[2024-03-09 12:13] LABS: Glucose - Point of Care 100 mg/dl (70-99)
--- NOTE | 2024-03-09 14:07 | CM ---
Reviewed chart. Met with and Mrs. Bronson to review discharge plans. He states prior to admission he resides with his spouse in a two story home with three steps to enter. He states he has a full flight of steps to get to bedroom. He states
he has a full bathroom on each level. He states prior to admission he was independent with ambulation and adls. He states he does not have any DME in the home. He states he has a prescription plan and uses [facility]. Medical work-up in
progress. The discharge plan is to return home with his spouse when medically stable.
--- NOTE | 2024-03-09 15:27 | PTCARENOTE ---
Patient sent to the mobile lab technician.
--- NOTE | 2024-03-09 17:13 | ITS.CL.CATH ---
Ichthyology Teacher - Catheterization
Cardiac Catheterization
Procedure Report:
CARDIAC CATHETERIZATION REPORT
Date of Procedure: 03/09/24
Referring: Dr. Bernard Akhtar
INDICATION: NSTEMI
PROCEDURE:
1. Left heart catheterization.
2. Coronary angiography with bypass graft angiography.
ACCESS:
6 Haitian right common femoral artery
CATHETERS:
1. 6 Haitian KENDALL
2. 6 Haitian JL4
3. 6 Haitian JR4
4. 6 Haitian Multipurpose
5. 5 Haitian Pigtail
HEMODYNAMIC DATA
Weight (kg): 72.6 kg
AO: 124/63 (mean 88) mmHg
LV: 126/4 (EDP 11) mmHg
CORONARY ANGIOGRAPHY
Dominance: right
Left Main: patent with mild disease
LAD: gives rise to a small D1 and moderate-caliber D2 before being severely occluded in the mid-vessel. The mid-distal vessel is supplied via the radial-D3 graft which backfills the LAD.
Circumflex: large vessel giving rise to a moderate-caliber OM1 and large OM2 before terminating in the AV groove. There is mild diffuse disease and no competitive flow visualized.
RCA: not selectively engaged but totally occluded on non-selective angio of the right coronary cusp.
BYPASS GRAFT ANGIOGRAPHY
TIERNEY-LAD: not selectively engaged but appears to be occluded on non-selective angiography of the left subclavian
MALIHA-OM: not selectively engaged but atretic with poor outflow on non-selective angiography of the right subclavian
SVG-RPDA: totally occluded proximally with thrombus
radial-diagonal: patent from a left-sided aortotomy with distal anastomosis to the diagonal; supplies brisk retrograde flow to the LAD and subsequent L-R collaterals to the RPDA
Closure Device: 6F Angioseal
Radiation (mGy): 477.04
DAP (cm2.Gy): 47.5431
Fluoroscopy time (minutes): 22.3
CONCLUSIONS
1. Multi-vessel coronary artery disease status-post CABG with 3/4 grafts occluded (TIERNEY-OSEI, MALIHA-OM, SVG-RPDA). The SVG-RPDA looks acute and is likely the culprit for the patient's presentation. A widely patent radial-diagonal supplies excellent
flow to the LAD system which subsequently supplies collaterals to the RPDA.
2. Left heart catheterization demonstrates normal LV filling pressure and no aortic stenosis on pullback.
RECOMMENDATIONS:
1. Expectant management after cardiac catheterization via right femoral artery approach.
2. Continue medical therapy for management of CAD and aggressive risk factor modification.
3. Initiate beta alma and consider RASS blockade if blood pressure tolerates.
Copy to: Dr. Brian Pablo MD
Signed: Lizandro Wall MD, PhD
--- NOTE | 2024-03-09 17:19 | PTCARENOTE ---
Patient returned from the labor specialist after cardiac cath via right femoral artery. Dressing right groin is dry and intact with palpable DP pulse. Reinforced for patient to remain on bedrest x 3 hours. Patient denies any pain or discomfort. at the
bedside, call godinez in reach.
[2024-03-09] MEDS: TOPROL XL 12.5 MG PO (17:44)
[2024-03-09] MEDS: NSS 1000 IV (17:45)
[2024-03-09 17:59] LABS: Glucose - Point of Care 114 mg/dl (70-99)
[2024-03-09 22:10] LABS: Glucose - Point of Care 145 mg/dl (70-99)
[2024-03-09] MEDS: LIPITOR 40 MG PO (22:11)
[2024-03-09] MEDS: LANTUS 0.6 UNITS SC (22:12)
--- NOTE | 2024-03-10 03:43 | PTCARENOTE ---
Pt. received at change of shift. VSS, NSR with BBB on monitor. Pt. denies chest pain. R groin cath site dry/intact with no complications noted. Plan of care discussed and patient verbalizes understanding. Can make needs known. Call godinez within
reach.
[2024-03-10 03:58] VITALS: BP 136/67
[2024-03-10 04:02] LABS: Glucose - Point of Care 84 mg/dl (70-99)
[2024-03-10 04:04] VITALS: BMI 26.9
[2024-03-10 04:25] LABS: Hemoglobin 11.5 g/dL (13.0-18.0); Mean Corp Hgb Conc. 32.9 g/dL (33.0-37.0); Mean Corpuscular Hgb 27.6 pg (27.0-31.0); Mean Corpuscular Volume 83.9 fL (80.0-94.0); Mean Platelet Volume 10.4 fL (7.4-10.4); Platelet Count 157 10^3/uL (130-400); Red Blood Cell Count 4.17 10^6/uL (4.70-6.10); Red Cell Dist. Width 15.5 % (11.5-14.5); White Blood Cell Count 8.5 10^3/uL (4.8-10.8)
[2024-03-10 04:50] LABS: Blood Urea Nitrogen 26 mg/dl (9-20); Calcium 9.4 mg/dl (8.4-10.2); Carbon Dioxide 24 mmol/L (22-30); Chloride 105 mmol/L (98-107); Estimated Creatinine Clearance 60 ml/min; Glucose 86 mg/dl (70-99); Potassium 4.7 mmol/L (3.5-5.1); Sodium 137 mmol/L (135-145); eGFR > 60.00
[2024-03-10 07:12] VITALS: BP 106/62
[2024-03-10 07:19] LABS: Glucose - Point of Care 79 mg/dl (70-99)
--- NOTE | 2024-03-10 08:29 | W.PN.CD ---
Today's Communication / Plan
-
discharge home today on current cardiac regimen; follow up with cardiac rehab and Dr. Pablo for cardiac care
Impression / Plan
-
BACKGROUND: 83 with CAD (CABG x4: TIERNEY-LAD, MALIHA-OM, rad-Alicia, SVG-RPDA; 2003), hypertension, dyslipidemia, bifascicular block (2021), NIDDM, COPD, and former smoker who presented to the emergency department with a chief complaint of indigestion. He
was found to have an NSTEMI.
NSTEMI
CAD
-s/p coronary angiography with 3/4 grafts down, LAD territory supplied by rad-alicia; likely culprit blockage of the SVG-RPDA; PDA supplied via LAD collaterals
-given patient stability and low likelihood of durable revascularization of SVG, revascularization was deferred
-normal EF on echo
-troponin peak at 1.5 now downtrending
-continue asa, amlodipine
-atorvastatin increased to 40
-added low dose metoprolol qHS
-discharge with [facility] re[facility] and plan to follow up with Dr. Pablo
Hypertension, stable, mild cLVH on prior echocardiogram
Mildly dilated aortic root (3.8 cm, 2020)
HLD, LDL at goal (62), will increase statin intensity in setting of DC
NIDDM, Hgba1c 7.1%, per primary
COPD
Former smoker
Physical Exam
Vital Signs/Labs
Vital Signs
Temp Pulse Resp BP Pulse Ox
36.7 C 74 18 136/67 95
03/10/24 07:10 03/10/24 04:00 03/10/24 07:10 03/10/24 03:58 03/10/24 07:10
03/09/24 03/10/24 03/11/24
06:59 06:59 06:59
Actual Weight 77.5 kg 77.7 kg
03/10/24 03:55
03/10/24 03:55
APTT Cancelled 03/09/24 15:30
Triglycerides 205 mg/dl (10-149) H 03/09/24 03:47
LDL Cholesterol, Calc 62 mg/dl 03/09/24 03:47
VLDL Cholesterol, Calc 41 mg/dl (0-30) H 03/09/24 03:47
HDL Cholesterol 30 mg/dl 03/09/24 03:47
LAB Results
03/08/24 03/09/24 03/09/24
21:59 03:47 08:34
Troponin I 0.195 H* 0.759 H* D 1.880 H* D
03/09/24 03/09/24 03/10/24
15:04 17:35 03:55
Troponin I Cancelled 1.620 H* 1.540 H*
Physical Exam
Constitutional: No acute distress and Comfortable
Cardiovascular: Rhythm & rate is regular and JVD pressure is normal
Respiratory: Respiratory effort normal and Lungs clear to auscul.
GI: Soft and Distention absent
Neuro/Psych: Alert, Oriented and AO x 3
Data Reviewed
-
Date of Service: March 10, 2024
Medical Decision Making: Reviewed Test Results
EKG: Tracing Personally Visualized and interpreted
Labs: Labs Reviewed by me
--- NOTE | 2024-03-10 08:52 | W.PN.HOSP.TC ---
Today's Communication/Plan
-
Cleared by cardiology for discharge today
Assessment / Plan
Assessment / Plan
83y M with PMH significant for ASCVD, HTN and DM-II who presents to ED complaining of indigestion / chest pain.
ACS / NSTEMI
-Appreciate cardiology input, 03/09/2024 cardiac catheterization shows 3/4 grafts down, LAD territory supplied by rad-dillon; likely culprit blockage of the SVG-RPDA; PDA supplied via LAD collaterals. Given patient stability and low likelihood of
durable revascularization of SVG, revascularization was deferred
-Cardiology recommends medical management with increasing atorvastatin to 40 mg at bedtime, starting Toprol XL 12.5 mg at bedtime
-Continue aspirin 81 mg daily, discharge with [facility] and plan to follow up with Dr. Pablo
Benign Hypertension
- Stable. Continue amlodipine
DM-II
- Stable. Continue basal insulin at slightly decreased dose.
- Hold metformin for 3 days, can resume 03/13
GERD / Hiatal Hernia
Schatzki's Ring
- Significant GI history as well. Symptoms worse after eating.
- Continue PPI
COPD without Acute Exacerbation
- Stable
BPH
- Stable. Patient notes that he has been found to have a degree of urinary retention - followed by Dr. Serra.
- He is s/p partial prostatectomy and notes that there are plans for Urology intervention / procedure in 2 weeks.
- Follow bladder scan protocols during stay. Continue tamsulosin.
- If coronary stent is placed - patient will require DAPT and any Urologic intervention will likely need to be delayed for a time.
Physical Exam
General: No acute distress
HEENT: Normocephalic, Atraumatic, EOMI, MMM
Respiratory: Clear to Auscultation bilaterally
Cardiac: Normal S1/S2, Regular Rate and Rhythm
GI: Soft, Nontender, Nondistended, Normal Bowel Sounds
Extremities: No Clubbing, Cyanosis, or Edema
Neuro: Nonfocal/Grossly Intact
Psych: Calm, Cooperative
Derm: No Visible lesions
Anticipated Discharge: Today
Subjective/Interval History
-
Date of Service: March 10, 2024
No recurrence of indigestion. No chest pain, shortness of breath, or palpitations. No fever, no vomiting.
Objective Data
-
Labs:
Laboratory Results
03/10/24
03:55
WBC 8.5
Hgb 11.5 L
Hct 35.0 L
Plt Count 157
Sodium 137
Potassium 4.7
Chloride 105
Carbon Dioxide 24
BUN 26 H
Creatinine 0.9
Glucose 86
Calcium 9.4
Vital Signs:
Vital Signs
Temp Pulse Resp BP Pulse Ox
98.1 F 74 18 106/62 95
03/10/24 07:10 03/10/24 08:00 03/10/24 07:10 03/10/24 07:12 03/10/24 07:10
I&O
03/09/24 03/10/24 03/11/24
06:59 06:59 06:59
Intake Total 350 / 350
Output Total 100 / 100
Balance 250 / 250
[2024-03-10] MEDS: FLOMAX 0.4 MG PO (09:01)
[2024-03-10] MEDS: ASPIR LOW (ENTERIC COATED) 81 MG PO (09:01)
[2024-03-10] MEDS: PROTONIX IV 40 MG IV (09:02)
[2024-03-10] MEDS: NSS (PRESERVATIVE FREE) 10 ML IV (09:02)
[2024-03-10] MEDS: FLUSH (NSS) 1 FLUSH IV (09:03)
[2024-03-10] MEDS: NORVASC 10 MG PO (09:03)
--- NOTE | 2024-03-10 10:18 | PTCARENOTE ---
Received patient this morning sitting oob in the chair finishing breakfast. Dressing right groin is dry and intact. Offers no complaints, anxious to go home. Waiting to be seen by physician.
--- NOTE | 2024-03-10 11:37 | PTCARENOTE ---
Patient seen by Dr. Waller and is ok for discharge.
--- NOTE | 2024-03-10 11:40 | W.DCSUMMARY ---
Discharge Summary
Discharge Data
Date of Admission: 03/09/24
Date of Discharge: 03/10/24
-
Pending Results: No
Hospital Course
Discharge diagnosis:
Acute coronary syndrome/non-ST elevation myocardial infarction
Benign essential hypertension
Type 2 diabetes
Gastroesophageal reflux disease/hiatal hernia
Schatzki's Ring
Chronic obstructive pulmonary disease
Benign prostatic hypertrophy
Consults: Cardiology
Procedures:
03/09/2024 cardiac catheterization
CONCLUSIONS
1. Multi-vessel coronary artery disease status-post CABG with 3/4 grafts occluded (TIERNEY-OSEI, MALIHA-OM, SVG-RPDA). The SVG-RPDA looks acute and is likely the culprit for the patient's presentation. A widely patent radial-diagonal supplies excellent
flow to the LAD system which subsequently supplies collaterals to the RPDA.
2. Left heart catheterization demonstrates normal LV filling pressure and no aortic stenosis on pullback.
RECOMMENDATIONS:
1. Expectant management after cardiac catheterization via right femoral artery approach.
2. Continue medical therapy for management of CAD and aggressive risk factor modification.
3. Initiate beta alma and consider RASS blockade if blood pressure tolerates.
Echo:
Normal left ventricular size and systolic function.
LV ejection fraction is 55-60% by Kulkarni's method of discs.
Mild concentric left ventricular hypertrophy.
Stage I diastolic dysfunction suggestive of abnormal relaxation.
Normal right ventricular size and function.
Mild tricuspid regurgitation.
Estimated pulmonary artery pressure of 40 mmHg. Assuming a right atrial
pressure of 3 mmHg.
Compared to prior from November 01, 2020, estimated PASP is now mildly elevated,
previously there was insufficient data for estimation.
Hospital course:
83-year-old male with a past medical history of coronary artery disease, hypertension, type 2 diabetes, and BPH presented with severe indigestion, and was found to have non-ST elevation myocardial infarction.
Patient was seen in conjunction with cardiology. His troponins peaked at 1.8. He underwent cardiac catheterization showing multi-vessel coronary artery disease status-post CABG with 3/4 grafts occluded (TIERNEY-OSEI, MALIHA-OM, SVG-RPDA). The SVG-RPDA
looks acute and is likely the culprit for the patient's presentation. Given patient stability and low likelihood of durable revascularization of SVG, revascularization was deferred. Cardiology recommends medical management with increasing patient's
atorvastatin to 40 mg at bedtime, starting Toprol-XL 12.5 mg at bedtime, and continuing aspirin 81 mg daily. He has been referred to cardiac rehab.
Patient did not have any recurrence of his indigestion symptoms. He is on omeprazole at home, and received IV Protonix in the hospital. He wishes to continue pantoprazole upon discharge, prescription has been sent.
Patient is medically stable for discharge. 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
Disposition: Home self-care
Discharge planning: Required 36 minutes
Discharge Plan
-
Patient Disposition: Home (Routine Discharge)
Discharge Diagnosis/Procedures: Non-ST elevation myocardial infarction, coronary artery disease, cardiac catheterization, indigestion
Condition: Good
Diet: Low Fat, Low Cholesterol and Diabetic, Carb Controlled
Activity: As tolerated
Driving Restrictions: No driving for 24 hours
Activity Restrictions/Additional Instructions:
Follow up with Dr. Pablo in 2-3 weeks, and your primary care doctor in 1 week.
Stand Alone Forms: DC Instructions- Cath/EP Lab
Referrals:
Zelalem Blood MD [Family Provider] - in one week
Jazzmine Reagan CRNP [Specified Professional Personl] - 04/08/24 4:20 pm (Cardiology followup appointment)
Prescriptions:
New
metoprolol succinate 25 mg Tablet Extended Release 24 Hr
12.5 mg PO QPM Qty: 30 0RF
pantoprazole 40 mg tablet,delayed release (DR/EC)
40 mg PO DAILY Qty: 30 0RF
atorvastatin 40 mg tablet
40 mg PO DAILY Qty: 30 0RF
Continued
insulin glargine [Lantus U-100 Insulin] 1,000 UNITS/10 ML solution
70 units SC HS
aspirin 81 MG tablet,delayed release (DR/EC)
81 mg PO DAILY
amlodipine 5 MG tablet
10 mg PO DAILY
tamsulosin 0.4 MG capsule
0.4 mg PO DAILY
fluticasone propionate 1 SPRAY spray,suspension
2 spray intranasal DAILYPRN PRN (Reason: allergies)
fluticasone furoate-vilanterol [Breo Ellipta] 1 EACH blister with device
1 puff inhalation R DAILYPRN PRN (Reason: sob)
bethanechol chloride 5 mg Tablet
5 mg PO BID
Rx Instructions:
clarify please
PreserVision AREDS-2 250-90-40-1 mg Tablet,Chewable
1 tab PO QAM AND QPM
Held
metformin 500 MG tablet extended release 24 hr
1,000 mg PO BID
Hold Instructions: Resume on 03/13/24.
meloxicam 15 mg Tablet
15 mg PO DAILY
Hold Instructions: Resume on 03/13/24.
Discontinued
omeprazole 20 MG capsule,delayed release(DR/EC)
20 mg PO DAILY
atorvastatin 20 MG tablet
10 mg PO HS
Discharge Orders:
Discharge Patient (As Directed); Ordered 03/10/24
Ordered By: Oscar Waller
Discharge Date and Time
Discharge Date/Time: 03/10/24 12:09
Print Language: UKRAINIAN
--- NOTE | 2024-03-10 12:08 | PTCARENOTE ---
Reviewed discharge instructions with the patient and his and they state their understanding. Patient discharged home.
--- NOTE | 2024-03-11 15:47 | PN.CDI ---
CDI
- -
CDI:
Physician Documentation Request
Admit Date: 03/09/24 01:27
Dear Doctor Duke
Patient underwent cardiac cath on 03/09 due to NSTEMI revealing ' SVG-RPDA: totally occluded proximally with thrombus....The SVG-RPDA looks acute and is likely the culprit for the patient's presentation'
Please clarify the following:
Findings consistent with a complication of the SVG
Findings consistent with progression of cad
Other
Use of terms such as suspected, likely, concern for, or probable (associated with a specific diagnosis that is being evaluated, monitored, or treated as if it exists) are acceptable and can be coded in the inpatient setting, when documented at the
time of discharge.
Thank you,
Cortney Rocha RN, BSN
CDI Specialist
tiger text
Please use your independent medical judgment in providing your response.
--- NOTE | 2024-03-13 15:28 | W.PN.UPDATE ---
Update Note
Progress Note Update
Asked by CDI to comment on whether the findings of the occluded vein graft are a progression of CAD and/or a complication of the vein graft. Vein grafts very frequently become occluded over time, although the process is not the same as that of
progression of CAD. Thus, while this is not a progression of CAD per se, it is also not a complication. It is a typical finding in coronary artery bypass vein grafts.
== END 2024-03-10 12:09 | disposition home or self-care (01) | DRG 281 ==
LOC: IVU 01:27
PROVIDERS: Nurse Practitioner; Student in an Organized Health Care Education/Training Program; ADMITTING PHYSICIAN Hospitalist; ATTENDING PHYSICIAN Family Medicine; EMERGENCY PHYSICIAN Emergency Medicine; FAMILY PHYSICIAN Internal Medicine; OTHER PHYSICIAN Internal Medicine Cardiovascular Disease
PROC: 4A023N7 Measurement of Cardiac Sampling and Pressure, Left Heart, Percutaneous Approach (ICD-10-PCS; 2024-03-09)
PROC: B2111ZZ Fluoroscopy of Multiple Coronary Arteries using Low Osmolar Contrast (ICD-10-PCS; 2024-03-09)
PROC: B2131ZZ Fluoroscopy of Multiple Coronary Artery Bypass Grafts using Low Osmolar Contrast (ICD-10-PCS; 2024-03-09)
DX: I21.4 Non-ST elevation (NSTEMI) myocardial infarction (principal); I25.810 Atherosclerosis of coronary artery bypass graft(s) without angina pectoris; I45.2 Bifascicular block; I11.9 Hypertensive heart disease without heart failure; E11.9 Type 2 diabetes mellitus without complications; J44.9 Chronic obstructive pulmonary disease, unspecified; K22.2 Esophageal obstruction; Z95.1 Presence of aortocoronary bypass graft; I45.10 Unspecified right bundle-branch block; I25.10 Atherosclerotic heart disease of native coronary artery without angina pectoris; E78.00 Pure hypercholesterolemia, unspecified; K21.9 Gastro-esophageal reflux disease without esophagitis; K44.9 Diaphragmatic hernia without obstruction or gangrene; N40.1 Benign prostatic hyperplasia with lower urinary tract symptoms; R33.8 Other retention of urine; Z79.4 Long term (current) use of insulin; Z79.84 Long term (current) use of oral hypoglycemic drugs; Z79.82 Long term (current) use of aspirin; Z79.899 Other long term (current) drug therapy; Z87.891 Personal history of nicotine dependence; Z90.79 Acquired absence of other genital organ(s); Z86.79 Personal history of other diseases of the circulatory system; Z90.89 Acquired absence of other organs; Z86.010 Personal history of colon polyps; Z82.49 Family history of ischemic heart disease and other diseases of the circulatory system
CPT/HCPCS: 80048; 80053; 80061; 82962; 83036; 84484; 85025; 85027; 85730; 93005; 93306; 93459; 99285; C1760; C1894; Q9950; Q9967

== ENCOUNTER → 2024-03-13 06:31 | Outpatient (REF) | payer MEDICARE, SELFPAY | LOC: HWRAD 06:31 | PROVIDERS: ATTENDING PHYSICIAN Specialist; FAMILY PHYSICIAN Internal Medicine | DX: N40.1 Benign prostatic hyperplasia with lower urinary tract symptoms (principal) | CPT/HCPCS: 76775 ==

== ENCOUNTER 2024-03-27 06:50 | Outpatient (RCR) | payer MEDICARE, SELFPAY ==
[2024-03-23 10:47] LABS: Glucose - Point of Care 128 mg/dl (70-99)
[2024-03-23 11:14] LABS: Glucose - Point of Care 122 mg/dl (70-99)
[2024-03-25 06:30] LABS: Glucose - Point of Care 112 mg/dl (70-99)
[2024-03-25 07:34] LABS: Glucose - Point of Care 101 mg/dl (70-99)
[2024-03-27 06:33] LABS: Glucose - Point of Care 103 mg/dl (70-99)
[2024-03-27 07:20] LABS: Glucose - Point of Care 92 mg/dl (70-99)
[2024-03-27 07:32] LABS: Glucose - Point of Care 103 mg/dl (70-99)
== END 2024-03-27 23:59 | disposition home or self-care (01) ==
LOC: CRHB 06:50
PROVIDERS: ATTENDING PHYSICIAN Internal Medicine Cardiovascular Disease
DX: I25.10 Atherosclerotic heart disease of native coronary artery without angina pectoris (principal); I25.2 Old myocardial infarction; Z95.1 Presence of aortocoronary bypass graft
CPT/HCPCS: 82962; G0422; G0423

== ENCOUNTER 2024-04-17 07:11 | Emergency (ER) | payer MEDICARE, SELFPAY ==
[2024-04-17 07:11] VITALS: BMI 28.0
[2024-04-17 07:21] VITALS: BP 113/63
[2024-04-17 07:33] VITALS: BP 141/69
--- NOTE | 2024-04-17 07:46 | ED.GENMED ---
History of Present Illness
General
Chief Complaint: Chest Pain
Time Seen by Provider: 04/17/24 07:45
History of Present Illness
History of Present Illness:
HPI: Patient presents from cardiac rehab this am. The patient was here with a non-STEMI 1 month ago. This morning around 6 AM he had some indigestion. At around 6:30 AM at cardiac rehab, he developed some lightheadedness on elliptical. He never
had any chest pain.
EXAM:
GENERAL: Well appearing in no distress
HEENT: Moist oral mucosa
CARDIOVASCULAR: No murmurs, normal heart rate, regular rhythm, No chest wall tenderness
PULMONARY: No respiratory distress, breath sounds are clear and equal
ABDOMEN: Soft with no peritoneal signs, no tenderness
NEUROLOGIC: Excellent strength all extremities, no coordination deficits
PSYCHIATRIC: Appropriate mental status, normal insight and judgement
EXTREMITIES: Nontender, no edema, moves all extremities equally
SKIN: No rash, no lesions
TIME OF INITIAL ENCOUNTER: 7:50 AM
NUMBER AND COMPLEXITY OF PROBLEMS ADDRESSED AT THE ENCOUNTER
� Chronic conditions affecting care: CAD/CABG, high blood pressure, IDDM
� Acute Exacerbation and/or Progression of Chronic Illness: This is an acute problem
� Differential Diagnosis includes: ACS, stable angina, unstable angina, non-STEMI, musculoskeletal chest wall pain
AMOUNT AND/OR COMPLEXITY OF DATA TO BE REVIEWED AND ANALYZED
� I performed an independent evaluation of and my interpretation is:
EKG: Sinus 62, left axis deviation, right bundle branch block, there is a biphasic T wave in aVF but otherwise unchanged from 03/09/2024
CT:
X-rays:
Laboratory Studies: White count and hemoglobin are at baseline; first troponin negative, chemistries relatively unremarkable
Other:
� Review of other/old records: Cath report from 1 month ago showed multivessel CAD status post CABG�at that time SVG-RPDA looks acute and is likely the culprit for the patient's presentation
� Clinical information was obtained by an independent historian: None needed
� Prescriptions/Medications Considered but not given:
� Further testing considered but not performed:
RISK OF COMPLICATIONS AND/OR MORBIDITY OR MORTALITY OF PATIENT MANAGEMENT
� Social determinants of health affecting care: Lives at home
� Discussion with other providers: Notified Dr. Sal of patient's presentation�recommends discharge to home if second troponin unremarkable
� Escalation of care including admission/observation vs risk of discharge considered: The patient never had any chest pain but did have indigestion and had resolved lightheadedness as well. Second troponin unremarkable. The
patient has had no further symptoms while in the emergency department.
Past History
Past History
ED Past Medical History: CAD, Hypercholesterolemia, IDDM and Other (prostate: takes tamulosin); Negative [place]
ED Past Surgical History: Appendectomy, Cardiac (bypass 2003), Orthopedic and Urological
Social History
Tobacco: Former smoker
Alcohol: None
Drug: None
Personal:
Living: with family
Employment: Retired
Family History
Family History: Diabetes
Phy Exam
Physical Exam
Physical Exam:
See HPI
Scores
Heart Score for Chest Pain Patients
STEMI patient?: Not applicable
Course
Orders/Labs/Results
Orders:
Orders
04/17/24
Electrocardiogram (*1) Stat
Reason for Study: Chest Pain
Comment: DONE
04/17/24 08:02
Complete Blood Count/With Diff Urgent
Comprehensive Metabolic Panel Urgent
Troponin I Urgent
04/17/24 09:59
Troponin I Urgent
Abnormal Lab Results
04/17/24
08:02
RBC 4.50 L 10^6/uL
(4.70-6.10)
Hgb 11.5 L g/dL
(13.0-18.0)
Hct 36.6 L %
(39.0-52.0)
MCH 25.6 L pg
(27.0-31.0)
MCHC 31.4 L g/dL
(33.0-37.0)
RDW 14.8 H %
(11.5-14.5)
MPV 10.5 H fL
(7.4-10.4)
Absolute Monos (auto) 0.8 H 10^3/uL
(0.1-0.6)
Lymphocytes % 19.5 L %
(20.5-51.1)
Monocytes % 11.8 H %
(1.7-9.3)
Eosinophils % 7.2 H %
(0-6)
Carbon Dioxide 20 L mmol/L
(22-30)
BUN 28 H mg/dl
(9-20)
04/17/24 08:02
04/17/24 08:02
Vital Signs
Initial and Last Documented VS:
Initial Vital Signs
Temp Pulse Resp BP Pulse Ox
98.4 F 59 18 113/63 96
04/17/24 07:21 04/17/24 07:21 04/17/24 07:21 04/17/24 07:21 04/17/24 07:21
Last Documented Vital Signs
Temp Pulse Resp BP Pulse Ox
98.4 F 59 22 138/51 96
04/17/24 07:21 04/17/24 10:00 04/17/24 10:00 04/17/24 10:00 04/17/24 10:00
*Critical Care Note
Total Time (30-74mins, 75-104mins- exclusive of procedures): Not Applicable
ED Attending Note
-
Portions of this chart may have been created with voice recognition software.� Occasional wrong word or��sound alike� substitutions may have occurred due to the inherent limitations of voice recognition software.
Discharge Plan
Departure
Patient Disposition: Home (Routine Discharge)
Date of Disposition: 04/17/24
Time of Disposition: 10:45
Patient with high blood pressure during this ER visit?: Yes
Discharge Problem:
Episodic lightheadedness
Instructions: Dizziness
Prescriptions:
No Action
insulin glargine [Lantus U-100 Insulin] 1,000 UNITS/10 ML solution
70 units SC HS
aspirin 81 MG tablet,delayed release (DR/EC)
81 mg PO DAILY
amlodipine 5 MG tablet
10 mg PO DAILY
fluticasone propionate 1 SPRAY spray,suspension
2 spray intranasal DAILYPRN PRN (Reason: allergies)
metformin 500 MG tablet extended release 24 hr
1,000 mg PO BID
meloxicam 15 mg Tablet
15 mg PO DAILY
PreserVision AREDS-2 250-90-40-1 mg Tablet,Chewable
1 tab PO BID
pantoprazole 40 mg tablet,delayed release (DR/EC)
40 mg PO DAILY Qty: 30 0RF
atorvastatin 40 mg tablet
40 mg PO DAILY Qty: 30 0RF
famotidine 40 mg Tablet
40 mg PO DAILY@1600
acetaminophen [Tylenol Arthritis Pain] 650 mg Tablet Extended Release
650 mg PO [id number] PRN (Reason: mild pain)
bethanechol chloride 25 mg Tablet
25 mg PO BID
isosorbide mononitrate 60 mg Tablet Extended Release 24 Hr
60 mg PO DAILY
nitroglycerin 0.4 mg Tablet, Sublingual
0.4 mg SUBLINGUAL [id number] PRN (Reason: chest pain)
albuterol sulfate 90 mcg/actuation Hfa Aerosol Inhaler
1 inh INHALATION R Q4HPRN PRN (Reason: sob)
metoprolol succinate 25 mg tablet extended release 24 hr
12.5 mg PO HS
Referrals:
Dennis Sal MD [Active] - Follow up in 2-3 days
Zelalem Blood MD [Family Provider] -
Activity Restrictions/Additional Instructions:
2 cardiac blood tests, troponins, are both normal. Follow-up with your cardiology group.
Interventions
Interventions:
*Risk Screen - Suicide Last Done: 04/17/24 07:21
*General Assessment Last Done: 04/17/24 07:21
*Neglect/Abuse Screening Last Done: 04/17/24 07:21
*ED COVID-19 Vaccine History Last Done: 04/17/24 07:34
ED- Cardiac Assessment Last Done: 04/17/24 07:35
Discharge Date and Time
Print Language: LAO
[2024-04-17 08:04] VITALS: BP 119/78
[2024-04-17 08:12] LABS: % Basophils 0.8 % (0-2); % Eosinophils 7.2 % (0-6); % Immature Granulocytes 0.3 % (0-0.5); % Lymphocytes 19.5 % (20.5-51.1); % Monocytes 11.8 % (1.7-9.3); % Neutrophils 60.4 % (42.2-75.2); Absolute Basophils 0.1 10^3/uL (0-0.2); Absolute Eosinophils 0.5 10^3/uL (0-0.7); Absolute Lymphocytes 1.3 10^3/uL (1.2-3.4); Absolute Monocytes 0.8 10^3/uL (0.1-0.6); Absolute Neutrophils 3.9 10^3/uL (1.4-6.5); Hematocrit 36.6 % (39.0-52.0); Hemoglobin 11.5 g/dL (13.0-18.0); Mean Corp Hgb Conc. 31.4 g/dL (33.0-37.0); Mean Corpuscular Hgb 25.6 pg (27.0-31.0); Mean Corpuscular Volume 81.3 fL (80.0-94.0); Mean Platelet Volume 10.5 fL (7.4-10.4); Nucleated Red Blood Cells % 0 % (-); Platelet Count 177 10^3/uL (130-400); Red Cell Dist. Width 14.8 % (11.5-14.5); White Blood Cell Count 6.5 10^3/uL (4.8-10.8)
[2024-04-17 08:29] LABS: ALT (SGPT) 17 U/L (0-50); AST (SGOT) 21 U/L (17-59); Albumin 4.5 g/dl (3.5-5.0); Alkaline Phosphatase 76 U/L (38-126); Blood Urea Nitrogen 28 mg/dl (9-20); Calcium 9.2 mg/dl (8.4-10.2); Carbon Dioxide 20 mmol/L (22-30); Chloride 105 mmol/L (98-107); Estimated Creatinine Clearance 45 ml/min; Glucose 91 mg/dl (70-99); Potassium 5.1 mmol/L (3.5-5.1); Sodium 141 mmol/L (135-145); Total Bilirubin 0.5 mg/dl (0.2-1.3); Total Protein 7.3 g/dl (6.3-8.2); eGFR > 60.00
[2024-04-17 08:40] LABS: Troponin I < 0.012 ng/ml
[2024-04-17 09:00] VITALS: BP 133/70
[2024-04-17 10:00] VITALS: BP 138/51
[2024-04-17 10:40] LABS: Troponin I < 0.012 ng/ml
== END 2024-04-17 11:00 | disposition home or self-care (01) ==
LOC: EMR 07:11
PROVIDERS: EMERGENCY PHYSICIAN Emergency Medicine; FAMILY PHYSICIAN Internal Medicine
DX: R42 Dizziness and giddiness (principal); K30 Functional dyspepsia; E11.9 Type 2 diabetes mellitus without complications; I10 Essential (primary) hypertension; I25.10 Atherosclerotic heart disease of native coronary artery without angina pectoris; I45.10 Unspecified right bundle-branch block; E78.00 Pure hypercholesterolemia, unspecified; I25.2 Old myocardial infarction; Z95.1 Presence of aortocoronary bypass graft; Z87.891 Personal history of nicotine dependence; Z79.4 Long term (current) use of insulin; Z79.82 Long term (current) use of aspirin
CPT/HCPCS: 99284; 80053; 84484; 85025; 93005

== ENCOUNTER 2024-04-24 08:57 | Outpatient (RCR) | payer MEDICARE, SELFPAY ==
[2024-04-01 06:42] LABS: Glucose - Point of Care 157 mg/dl (70-99)
[2024-04-01 07:39] LABS: Glucose - Point of Care 110 mg/dl (70-99)
[2024-04-03 06:30] LABS: Glucose - Point of Care 140 mg/dl (70-99)
[2024-04-03 07:20] LABS: Glucose - Point of Care 97 mg/dl (70-99)
[2024-04-03 07:33] LABS: Glucose - Point of Care 87 mg/dl (70-99)
[2024-04-03 07:36] LABS: Glucose - Point of Care 165 mg/dl (70-99)
[2024-04-08 06:32] LABS: Glucose - Point of Care 147 mg/dl (70-99)
[2024-04-08 07:21] LABS: Glucose - Point of Care 99 mg/dl (70-99)
[2024-04-08 07:33] LABS: Glucose - Point of Care 107 mg/dl (70-99)
[2024-04-10 06:30] LABS: Glucose - Point of Care 99 mg/dl (70-99)
[2024-04-10 07:21] LABS: Glucose - Point of Care 92 mg/dl (70-99)
[2024-04-10 07:36] LABS: Glucose - Point of Care 99 mg/dl (70-99)
[2024-04-13 06:28] LABS: Glucose - Point of Care 97 mg/dl (70-99)
[2024-04-13 07:24] LABS: Glucose - Point of Care 170 mg/dl (70-99)
[2024-04-15 06:37] LABS: Glucose - Point of Care 122 mg/dl (70-99)
[2024-04-15 07:30] LABS: Glucose - Point of Care 106 mg/dl (70-99)
[2024-04-17 06:41] LABS: Glucose - Point of Care 109 mg/dl (70-99)
[2024-04-20 06:43] LABS: Glucose - Point of Care 90 mg/dl (70-99)
[2024-04-20 07:01] LABS: Glucose - Point of Care 97 mg/dl (70-99)
[2024-04-20 07:10] LABS: Glucose - Point of Care 107 mg/dl (70-99)
[2024-04-20 07:33] LABS: Glucose - Point of Care 139 mg/dl (70-99)
[2024-04-22 06:30] LABS: Glucose - Point of Care 133 mg/dl (70-99)
[2024-04-22 07:19] LABS: Glucose - Point of Care 123 mg/dl (70-99)
[2024-04-24 06:29] LABS: Glucose - Point of Care 155 mg/dl (70-99)
[2024-04-24 07:24] LABS: Glucose - Point of Care 118 mg/dl (70-99)
== END 2024-04-24 23:59 | disposition home or self-care (01) ==
LOC: CRHB 08:57
PROVIDERS: ATTENDING PHYSICIAN Internal Medicine Cardiovascular Disease; FAMILY PHYSICIAN Internal Medicine
DX: I25.10 Atherosclerotic heart disease of native coronary artery without angina pectoris (principal); I25.2 Old myocardial infarction
CPT/HCPCS: 82962; G0422

== ENCOUNTER → 2024-05-19 08:16 | Outpatient (REF) | payer MEDICARE, SELFPAY ==
[2024-05-19 10:11] LABS: ALT (SGPT) 16 U/L (0-50); AST (SGOT) 21 U/L (17-59); Albumin 4.5 g/dl (3.5-5.0); Alkaline Phosphatase 64 U/L (38-126); Direct Bilirubin 0.3 mg/dl (0.0-0.4); Glucose 78 mg/dl (70-99); HDL Cholesterol 31 mg/dl; LDL Cholesterol, Calculated 54 mg/dl; Total Bilirubin 0.4 mg/dl (0.2-1.3); Total Cholesterol 115 mg/dl (50-199); Total Protein 7.6 g/dl (6.3-8.2); Triglyceride 153 mg/dl (10-149); Very Low Density Lipoprotein 30 mg/dl (0-30)
[2024-05-19 10:32] LABS: Glycohemoglobin (HgbA1c) 6.5 % (4.0-5.6)
== END ==
LOC: HWLAB 08:16
PROVIDERS: ATTENDING PHYSICIAN Internal Medicine
DX: Z79.4 Long term (current) use of insulin (principal); E11.59 Type 2 diabetes mellitus with other circulatory complications; E78.2 Mixed hyperlipidemia; I10 Essential (primary) hypertension
CPT/HCPCS: 36415; 80061; 80076; 82947; 83036

== ENCOUNTER 2024-05-27 08:46 | Outpatient (RCR) | payer MEDICARE, SELFPAY ==
[2024-05-01 06:46] LABS: Glucose - Point of Care 147 mg/dl (70-99)
[2024-05-01 07:42] LABS: Glucose - Point of Care 124 mg/dl (70-99)
[2024-05-04 06:31] LABS: Glucose - Point of Care 174 mg/dl (70-99)
[2024-05-04 07:19] LABS: Glucose - Point of Care 106 mg/dl (70-99)
[2024-05-08 06:31] LABS: Glucose - Point of Care 114 mg/dl (70-99)
[2024-05-08 07:25] LABS: Glucose - Point of Care 101 mg/dl (70-99)
[2024-05-11 06:42] LABS: Glucose - Point of Care 97 mg/dl (70-99)
[2024-05-11 07:06] LABS: Glucose - Point of Care 119 mg/dl (70-99)
[2024-05-11 07:41] LABS: Glucose - Point of Care 133 mg/dl (70-99)
[2024-05-13 06:32] LABS: Glucose - Point of Care 116 mg/dl (70-99)
[2024-05-13 07:24] LABS: Glucose - Point of Care 124 mg/dl (70-99)
[2024-05-15 06:26] LABS: Glucose - Point of Care 117 mg/dl (70-99)
[2024-05-15 07:21] LABS: Glucose - Point of Care 117 mg/dl (70-99)
[2024-05-18 06:33] LABS: Glucose - Point of Care 108 mg/dl (70-99)
[2024-05-18 07:26] LABS: Glucose - Point of Care 113 mg/dl (70-99)
[2024-05-20 06:23] LABS: Glucose - Point of Care 109 mg/dl (70-99)
[2024-05-20 07:20] LABS: Glucose - Point of Care 108 mg/dl (70-99)
[2024-05-22 06:30] LABS: Glucose - Point of Care 127 mg/dl (70-99)
[2024-05-22 07:22] LABS: Glucose - Point of Care 127 mg/dl (70-99)
[2024-05-25 06:34] LABS: Glucose - Point of Care 120 mg/dl (70-99)
[2024-05-25 07:26] LABS: Glucose - Point of Care 110 mg/dl (70-99)
== END 2024-05-27 23:59 | disposition home or self-care (01) ==
LOC: CRHB 08:46
PROVIDERS: ATTENDING PHYSICIAN Internal Medicine Cardiovascular Disease; FAMILY PHYSICIAN Internal Medicine
DX: I21.4 Non-ST elevation (NSTEMI) myocardial infarction (principal)
CPT/HCPCS: 82962; G0422; G0423

== ENCOUNTER 2024-05-28 14:58 | Inpatient (IN) | payer MEDICARE, SELFPAY ==
[2024-05-28] VITALS (12 sets, daily range): BP systolic 130–194; BP diastolic 71–129; BMI 28.1; BMI 27.5
--- NOTE | 2024-05-28 13:38 | ED.GENMED ---
History of Present Illness
General
Chief Complaint: Cardiac Symptoms
Time Seen by Provider: 05/28/24 13:33
History of Present Illness
History of Present Illness:
TIME OF INITIAL ENCOUNTER: 1:40 PM
HPI: The patient had an episode of indigestion last night. He had a non-STEMI this past February. The symptoms last evening lasted for 2 hours and have not recurred today. He went to see his primary care doctor who did an EKG with uncertain results
and had outpatient troponin which was elevated 0.321.
EXAM:
GENERAL: Well appearing in no distress
HEENT: Moist oral mucosa
CARDIOVASCULAR: No murmurs, normal heart rate, regular rhythm, No chest wall tenderness
PULMONARY: No respiratory distress, breath sounds are clear and equal
ABDOMEN: Soft with no peritoneal signs, no tenderness
NEUROLOGIC: Excellent strength all extremities, no coordination deficits
PSYCHIATRIC: Appropriate mental status, normal insight and judgement
EXTREMITIES: Nontender, no edema, moves all extremities equally
SKIN: No rash, no lesions
NUMBER AND COMPLEXITY OF PROBLEMS ADDRESSED AT THE ENCOUNTER
� Chronic conditions affecting care: CAD, CABG 2004, high blood pressure, IDDM
� Acute Exacerbation and/or Progression of Chronic Illness: This is an acute problem
� Differential Diagnosis includes: Indigestion, GERD, esophagitis, ACS
AMOUNT AND/OR COMPLEXITY OF DATA TO BE REVIEWED AND ANALYZED
� I performed an independent evaluation of and my interpretation is:
EKG: Sinus 78, right bundle branch block with more prominently abnormal ST segments in comparison to EKG from 04/17/2024. Posterior EKG was obtained which was relatively similar to the first
CT:
X-rays:
Laboratory Studies: Earlier today as outpatient, patient had a troponin 0.3-1, in February it peaked at 1.88, in March troponin was less than 0.012
Other:
� Review of other/old records: I reviewed records. The patient had a non-STEMI February 2024 and cath at that time showed multivessel CAD with 3 of 4 grafts occluded and 'the SVG�RPDA looks acute and is likely the culprit for the
patient presentation. A widely patent radial diagonal supplies excellent flow to the LAD system with subsequently supplies collaterals to the RPDA.'�Medical management was recommended
� Clinical information was obtained by an independent historian: None needed
� Prescriptions/Medications Considered but not given:
� Further testing considered but not performed:
RISK OF COMPLICATIONS AND/OR MORBIDITY OR MORTALITY OF PATIENT MANAGEMENT
� Social determinants of health affecting care: Lives at home
� Discussion with other providers: Discussed case with cardiology; Dr. Wright for admission at approximately 2:10 PM
� Escalation of care including admission/observation vs risk of discharge considered: Will plan heparinization and admission to the hospital.
ANY OTHER UPDATES:
2 PM: I discussed case with Dr. Pablo who agrees with heparinization and medical admission
Past History
Past History
ED Past Medical History: CAD, Hypercholesterolemia, IDDM and Other (prostate: takes tamulosin); Negative [place]
ED Past Surgical History: Appendectomy, Cardiac (bypass 2003), Orthopedic and Urological
Social History
Tobacco: Former smoker
Alcohol: None
Drug: None
Personal:
Living: with family
Employment: Retired
Family History
Family History: Diabetes
Phy Exam
Physical Exam
Physical Exam:
See HPI
Course
Orders/Labs/Results
Orders:
Orders
05/28/24
Electrocardiogram (*1) Stat
Reason for Study: Chest Pain
Comment: DONE
05/28/24 13:23
EKG [Electrocardiogram (*1)] Urgent
Reason for Study: Fatigue / Weakness
EKG- Treatment ONCE
05/28/24 13:38
Comprehensive Metabolic Panel Urgent
Lipase Urgent
Magnesium Urgent
05/28/24 13:39
Complete Blood Count/With Diff Urgent
Troponin I Urgent
05/28/24 14:09
Heparin 4,000 units IV NOW STA
Pharmacy Request to Place See Dose Instructions PO NOW STA
Discontinue all Active Warfarin orders?: Yes
05/28/24 14:[address] Non Medication Order As Directed
Physician Order: PTT 6 hours after initial start of Heparin infusion
05/28/24 14:15
Heparin 06950 Units/250 ml 25,000 units in 250 ml IV PER PROTOCOL
Weight to be used for heparin protocol in kilograms (kg):: 81.3
Protocol:: Cardiac Tx/Acute Coronary
PTT Goal Range to be used:: PTT 73 to 111 seconds
Order type:: Initial
INITIAL Infusion Dose (UNITS/KG/hr) & then follow protocol:: 12 units/kg/hr
Infusion Dose in UNITS/hr & then follow protocol (UNITS/hr):: 1,000
INFUSION RATE in mL/hr & then follow protocol (mL/hr):: 10
PTT less than or equal to 64 seconds:: Increase rate by 200 units/hr (+ 2 mL/hr)
PTT 64.1 to 72.9 seconds:: Increase rate by 100 units/hr (+ 1 mL/hr)
PTT 73 to 111 seconds:: Target Range. No change in rate.
PTT 111.1 to 130.9 seconds:: Decrease rate by 100 units/hr (- 1 mL/hr)
PTT 131 to 199.9 seconds:: HOLD for 1 hr. Then decrease rate by 200 units/hr (- 2 mL/hr)
PTT greater than or equal to 200 seconds:: HOLD for 2 hrs & Notify Provider. Then decrease by 200 units/hr (-
2 mL/hr)
Lab follow-up:: Each change, PTT q6h until 2 consecutive are therapeutic. Then PTT
daily.
05/28/24 14:37
Admit/Transfer Patient As Directed
Co-Sign Provider:
Level of Care: Inpatient admission
Assign to:: IVU
Physician / Group: alfonso
Diagnosis: NSTEMI
Reason for Hospitalization: NSTEMI
Expected length of stay greater than two midnights?: Yes
ELOS- Estimated Length of Stay in days: 3
I certify the patient meets the requirements for IP care: Yes
05/28/24 14:38
Code Status As Directed
Resuscitation Status: Full Code
PRN Pain Medication Management As Directed
May give lesser potent ordered pain med per pt: Yes
preference::
Protocol:: Medication orders for pain may be administered in a
manner that supports deferring to patient preference
when the pt is:
- Requesting an ordered lesser potent pain medication.
Least to most potent pain medications are defined
as: acetaminophen < NSAID < tramadol < opioids
(morphine, oxycodone, hydromorphone).
- Requesting a lesser dose of the same medication IF
ORDERED.
- Requesting a less intrusive route of administration
if both routes are prescribed by the provider (PO <
IV).
05/28/24 14:48
PTT Urgent
Comment: Obtain baseline before beginning heparin infusion if not already collected
05/28/24 15:[address] See Dose Instructions IV DIRECTED
Abnormal Lab Results
05/28/24 05/28/24
13:38 13:39
RBC 4.37 L 10^6/uL
(4.70-6.10)
Hgb 11.2 L g/dL
(13.0-18.0)
Hct 34.6 L %
(39.0-52.0)
MCV 79.2 L fL
(80.0-94.0)
MCH 25.6 L pg
(27.0-31.0)
MCHC 32.4 L g/dL
(33.0-37.0)
RDW 14.6 H %
(11.5-14.5)
Absolute Monos (auto) 0.9 H 10^3/uL
(0.1-0.6)
Monocytes % 12.4 H %
(1.7-9.3)
Carbon Dioxide 21 L mmol/L
(22-30)
BUN 25 H mg/dl
(9-20)
Glucose 67 L mg/dl
(70-99)
Troponin I 0.283 H* ng/ml
05/28/24 13:39
05/28/24 13:38
Vital Signs
Initial and Last Documented VS:
Initial Vital Signs
Temp Pulse Resp BP Pulse Ox
98.1 F 94 18 194/94 98
05/28/24 13:18 05/28/24 13:18 05/28/24 13:18 05/28/24 13:18 05/28/24 13:18
Last Documented Vital Signs
Temp Pulse Resp BP Pulse Ox
98.1 F 76 18 130/85 97
05/28/24 13:18 05/28/24 14:15 05/28/24 13:18 05/28/24 14:00 05/28/24 14:26
*Critical Care Note
Total Time (30-74mins, 75-104mins- exclusive of procedures): Not Applicable
ED Attending Note
-
Portions of this chart may have been created with voice recognition software.� Occasional wrong word or��sound alike� substitutions may have occurred due to the inherent limitations of voice recognition software.
Discharge Plan
Departure
Patient Disposition: Admit
Date of Disposition: 05/28/24
Time of Disposition: 14:14
Presentation/result/management discussed w/ accepting MD/DO: Hospitalist
Discharge Problem:
Acute coronary syndrome
Prescriptions:
No Action
insulin glargine [Lantus U-100 Insulin] 1,000 UNITS/10 ML solution
70 units SC HS
aspirin 81 MG tablet,delayed release (DR/EC)
81 mg PO DAILY
amlodipine 5 MG tablet
10 mg PO DAILY
PreserVision AREDS-2 250-90-40-1 mg Tablet,Chewable
1 tab PO BID
pantoprazole 40 mg tablet,delayed release (DR/EC)
40 mg PO DAILY Qty: 30 0RF
famotidine 40 mg Tablet
40 mg PO QPM
acetaminophen [Tylenol Arthritis Pain] 650 mg Tablet Extended Release
1,300 mg PO [id number] PRN (Reason: mild pain)
bethanechol chloride 25 mg Tablet
25 mg PO BID
isosorbide mononitrate 60 mg Tablet Extended Release 24 Hr
90 mg PO DAILY
nitroglycerin 0.4 mg Tablet, Sublingual
0.4 mg SUBLINGUAL [id number] PRN (Reason: chest pain)
metoprolol succinate 25 mg tablet extended release 24 hr
12.5 mg PO HS
meloxicam [Mobic] 15 mg Tablet
15 mg PO HS
metformin 500 mg Tablet Extended Release 24 Hr
1,000 mg PO BID
atorvastatin 40 mg tablet
40 mg PO QPM
calcium carbonate [Tums] 200 mg calcium (500 mg) Tablet,Chewable
400 mg PO BIDPRN PRN (Reason: gerd)
omeprazole 20 mg Tablet,Delayed Release (Dr/Ec)
40 mg PO HSPRN PRN (Reason: gerd)
Referrals:
Zelalem Blood MD [Family Provider] -
Interventions
Interventions:
*Risk Screen - Suicide Last Done: 05/28/24 13:22
*General Assessment Last Done: 05/28/24 13:22
*Neglect/Abuse Screening Last Done: 05/28/24 13:22
ED- Fall Risk Assessment Last Done: 05/28/24 14:27
*ED COVID-19 Vaccine History Last Done: 05/28/24 14:25
ED- Cardiac Assessment Last Done: 05/28/24 14:24
ED- Pulmonary Assessment Last Done: 05/28/24 14:26
Discharge Date and Time
Print Language: [id number]
[2024-05-28 13:53] LABS: % Eosinophils 2.2 % (0-6); % Immature Granulocytes 0.4 % (0-0.5); % Lymphocytes 22.5 % (20.5-51.1); % Monocytes 12.4 % (1.7-9.3); % Neutrophils 61.5 % (42.2-75.2); Absolute Basophils 0.1 10^3/uL (0-0.2); Absolute Eosinophils 0.2 10^3/uL (0-0.7); Absolute Lymphocytes 1.6 10^3/uL (1.2-3.4); Absolute Monocytes 0.9 10^3/uL (0.1-0.6); Absolute Neutrophils 4.4 10^3/uL (1.4-6.5); Hematocrit 34.6 % (39.0-52.0); Hemoglobin 11.2 g/dL (13.0-18.0); Mean Corp Hgb Conc. 32.4 g/dL (33.0-37.0); Mean Corpuscular Hgb 25.6 pg (27.0-31.0); Mean Corpuscular Volume 79.2 fL (80.0-94.0); Mean Platelet Volume 9.9 fL (7.4-10.4); Nucleated Red Blood Cells % 0 % (-); Platelet Count 190 10^3/uL (130-400); Red Blood Cell Count 4.37 10^6/uL (4.70-6.10); Red Cell Dist. Width 14.6 % (11.5-14.5); White Blood Cell Count 7.2 10^3/uL (4.8-10.8)
[2024-05-28 14:09] LABS: ALT (SGPT) 19 U/L (0-50); AST (SGOT) 25 U/L (17-59); Albumin 4.7 g/dl (3.5-5.0); Alkaline Phosphatase 79 U/L (38-126); Blood Urea Nitrogen 25 mg/dl (9-20); Calcium 9.7 mg/dl (8.4-10.2); Carbon Dioxide 21 mmol/L (22-30); Chloride 106 mmol/L (98-107); Estimated Creatinine Clearance 54 ml/min; Glucose 67 mg/dl (70-99); Lipase 127 U/L (23-300); Magnesium 1.8 mg/dl (1.6-2.3); Potassium 4.6 mmol/L (3.5-5.1); Sodium 142 mmol/L (135-145); Total Bilirubin 0.4 mg/dl (0.2-1.3); Total Protein 7.9 g/dl (6.3-8.2); eGFR > 60.00
--- NOTE | 2024-05-28 14:10 | CON.CAR ---
Consultation
Consultation Request
Date/Time Consultation Requested: 05/28 14:00
Date/Time Consultation Performed: 05/28 14:20
Requesting Provider: Keith Gray
Performing Provider: Brian Pablo MD
Reason for Consultation: NSTEMI
Medical History
-
Chief Complaint: chest discomfort
History of Present Illness:
Elijah Bronson is an 83-year-old gentleman with coronary artery disease (CABG 2003, NSTEMI 2023), hypertension, dyslipidemia, bifasicular block (2021), and diabetes who presents for chest discomfort. He states that last night he had a tuna hoagie
and after started feeling some chest discomfort which he thought was indigestion. He took 1 sublingual nitroglycerin which helped with the pain but then it recurred. He took another sublingual nitro which did not help. He then took omeprazole and
after 30 minutes the pain resolved. This morning he went to a routine PCP office visit and told his PCP about last night's event. His PCP checked a troponin which was abnormal at 0.3. Of note he had an NSTEMI in February which was medically managed
due to no targets for revascularization. Troponin peaked at 1.8. He then had negative troponins in March. He reports that as of this morning his symptoms are totally resolved.
Past Medical History
Past Medical History: CAD (Prior CABG x 4), COPD, HTN, Hypercholesterolemia and NIDDM
Past Surgical History: Appendectomy, Cardiac (CABG) and Urological (Prostatectomy)
Social History
Tobacco: Former Smoker
Alcohol: Occasional
Drug: None
Personal:
Living: With Family
Employment: Retired
Family History
Family History: Reviewed & Not Pertinent
Allergies / Home Medications
Allergy/AdvReac Type Severity Reaction Status Date / Time
No Known Allergies Allergy Verified 04/17/24 07:21
�Medication �Instructions �Recorded �Confirmed �Type
aspirin 81 mg tablet,delayed 81 mg PO DAILY Blood Clot 05/20/14 04/17/24 History
release Prevention/Tx
insulin glargine 100 unit/mL 70 units SC HS diabetes 05/20/14 04/17/24 History
subcutaneous solution (Lantus
U-100 Insulin)
amlodipine 5 mg tablet 10 mg PO DAILY Blood Pressure 07/17/17 04/17/24 History
fluticasone propionate 50 2 spray intranasal DAILYPRN PRN 05/11/21 04/17/24 History
mcg/actuation nasal allergies
spray,suspension
metformin 500 mg tablet,extended 1,000 mg PO BID diabetes 05/11/21 04/17/24 History
release 24 hr
meloxicam 15 mg tablet 15 mg PO DAILY pain 03/09/24 04/17/24 History
vit C 250 mg-E 90 mg-zinc 40 1 tab PO BID Supplement 03/09/24 04/17/24 History
mg-copper 1 [id number] chew
tablet (PreserVision AREDS-2)
atorvastatin 40 mg tablet 40 mg PO DAILY #30 tabs 03/10/24 04/17/24 Rx
pantoprazole 40 mg tablet,delayed 40 mg PO DAILY #30 tabs 03/10/24 04/17/24 Rx
release
acetaminophen 650 mg 650 mg PO [id number] PRN mild pain 04/17/24 04/17/24 History
tablet,extended release (Tylenol
Arthritis Pain)
albuterol sulfate 90 mcg/actuation 1 inh inhalation R Q4HPRN PRN sob 04/17/24 04/17/24 History
aerosol inhaler
bethanechol chloride 25 mg tablet 25 mg PO BID 04/17/24 04/17/24 History
famotidine 40 mg tablet 40 mg PO DAILY@1600 04/17/24 04/17/24 History
isosorbide mononitrate 60 mg 60 mg PO DAILY 04/17/24 04/17/24 History
tablet,extended release 24 hr
metoprolol succinate 25 mg 12.5 mg PO HS 04/17/24 04/17/24 History
tablet,extended release 24 hr
nitroglycerin 0.4 mg sublingual 0.4 mg sublingual [id number] PRN 04/17/24 04/17/24 History
tablet chest pain
Review of Systems
-
All other systems: Negative unless noted
Physical Exam
Vital Signs
Temp Pulse Resp BP Pulse Ox
98.1 F 94 18 194/94 98
05/28/24 13:18 05/28/24 13:18 05/28/24 13:18 05/28/24 13:18 05/28/24 13:18
Lab Results
05/28/24 13:39
05/28/24 13:38
Physical Exam
General: Well Developed, Well Nourished, No Apparent Distress and Comfortable
Respiratory: Clear and Non Labored Respirations
Cardiac: S1/S2 and Regular Rhythm; Negative Murmur, Rub, Peripheral Edema or JVD
Musculoskeletal: No Edema
Impression / Plan
-
Elijah Bronson is an 83-year-old gentleman with coronary artery disease (CABG 2003, NSTEMI 2023), hypertension, dyslipidemia, bifasicular block (2021), and diabetes who presents for chest discomfort concerning for NSTEMI.
Non-ST elevation myocardial infarction
-He had a left heart catheterization in February showing 3/4 grafts occluded with no targets for revascularization
-We will plan to medically manage
-Switch heparin to Lovenox for 48 hours of anticoagulation
-Continue aspirin and atorvastatin 40
-Start clopidogrel given concern for ACS (should be continued for 1 year)
-Trend troponin to peak
Coronary artery disease
-He has been struggling with angina (indigestion seems to be his anginal equivalent)
-Continue outpatient isosorbide and amlodipine 10 mg
-Increase metoprolol to 25 mg daily
-Start ranolazine
Data Reviewed
-
EKG: Tracing Personally Visualized and interpreted, Discussed with Physician and Discussed with Patient
Medical Tests (Nuc Med, Echo etc): Report Reviewed by me
Labs: Labs Reviewed by me, Discussed with Physician and Discussed with Patient
--- NOTE | 2024-05-28 14:13 | HPS.HSE ---
Family Physician
-
Family Physician: Jacobo Blood
Chief Complaint
-
indigestion
History of Present Illness
83 year old with PMH for type 2 DM, dyslipidemia, htn, CAD, COPD, paroxysmal atrial fib he patient had an episode of indigestion last night which lasted for two night after eating a tuna sandwich. denied chest pain, sob. denied HOLDER, dizzy or syncopal
episode. denied abdominal pain,n,v,d. denied dysuria or hematuria. He went to see his primary care doctor for routine visit, who did an EKG with uncertain results and had outpatient troponin which was elevated 0.321.
admitting for further management. patient initiated on heparin drip.
Medical History
Past Medical History
Past Medical History: Reports Other
Additional Past Medical History:
Chronic ischemic heart disease
Dyslipidemia
Hypertension
Coronary artery disease
Type 2 diabetes
Osteoarthritis
Nonalcoholic fatty liver disease
COPD
Paroxysmal A-fib
Enlarged prostate
Past Surgical History: Reports Other
Additional Past Surgical History:
Coronary artery bypass graft
Testicular surgery
Appendectomy
Prostatectomy
Cataract surgery
Social History
Tobacco: Former Smoker
Alcohol: Occasional
Drug: None
Personal:
Living: With Family
Family History
Family History: Not pertinent
Allergies / Home Medications
Allergies reflects when Allergies were last updated in [facility].
Home Medications with original date entered in [facility]
Allergy/Medication List:
Allergies
Allergy/AdvReac Type Severity Reaction Status Date / Time
No Known Allergies Allergy Verified 04/17/24 07:21
Home Medications
aspirin 81 mg tablet,delayed release 81 mg PO DAILY Blood Clot Prevention/Tx 05/20/14
insulin glargine 100 unit/mL subcutaneous solution (Lantus U-100 Insulin) 70 units SC HS diabetes 05/20/14
amlodipine 5 mg tablet 10 mg PO DAILY Blood Pressure 07/17/17
fluticasone propionate 50 mcg/actuation nasal spray,suspension 2 spray intranasal DAILYPRN PRN allergies 05/11/21
metformin 500 mg tablet,extended release 24 hr 1,000 mg PO BID diabetes 05/11/21
meloxicam 15 mg tablet 15 mg PO DAILY pain 03/09/24
vit C 250 mg-E 90 mg-zinc 40 mg-copper 1 [id number] chew tablet (PreserVision AREDS-2) 1 tab PO BID Supplement 03/09/24
atorvastatin 40 mg tablet 40 mg PO DAILY #30 tabs 03/10/24
pantoprazole 40 mg tablet,delayed release 40 mg PO DAILY #30 tabs 03/10/24
acetaminophen 650 mg tablet,extended release (Tylenol Arthritis Pain) 650 mg PO [id number] PRN mild pain 04/17/24
albuterol sulfate 90 mcg/actuation aerosol inhaler 1 inh inhalation R Q4HPRN PRN sob 04/17/24
bethanechol chloride 25 mg tablet 25 mg PO BID 04/17/24
famotidine 40 mg tablet 40 mg PO DAILY@1600 04/17/24
isosorbide mononitrate 60 mg tablet,extended release 24 hr 60 mg PO DAILY 04/17/24
metoprolol succinate 25 mg tablet,extended release 24 hr 12.5 mg PO HS 04/17/24
nitroglycerin 0.4 mg sublingual tablet 0.4 mg sublingual [id number] PRN chest pain 04/17/24
Review of Systems
-
Constitutional: Reports No Symptoms
EENT: Reports No Symptoms
Respiratory: Reports No Symptoms
Cardiac: Reports No Symptoms
Abdomen/GI: Reports Other (indigestion)
: Reports No Symptoms
Musculoskeletal: Reports No Symptoms
Skin: Reports No Symptoms
Neurological: Reports No Symptoms
Endocrine: Reports No Symptoms
Hematologic/Lymphatic: Reports No Symptoms
Psych: Reports No Symptoms
Physical Exam
Vital Signs
Vital Signs
Temp Pulse Resp BP Pulse Ox
98.1 F 94 18 194/94 98
05/28/24 13:18 05/28/24 13:18 05/28/24 13:18 05/28/24 13:18 05/28/24 13:18
Physical Exam
General: Well Developed, Well Nourished and No Apparent Distress
HEENT: NormoCephalic, Moist mucous membranes and Atraumatic
Respiratory: Clear
Cardiac: S1/S2 and Regular Rhythm; No Murmur or Rub
GI: Soft, Non Tender, Non Distended and Normal Bowel Sounds; No Organomegaly
Rectal: Deferred by Provider
Musculoskeletal: No Clubbing, No Cyanosis and No Edema
Skin: No Rash
Neuro: AO x 3 and Nonfocal/grossly intact
Psych: Calm
Laboratory Results
-
05/28/24 13:39
05/28/24 13:38
Laboratory Results
Total Bilirubin 0.4 mg/dl (0.2-1.3) 05/28/24 13:38
AST 25 U/L (17-59) 05/28/24 13:38
ALT 19 U/L (0-50) 05/28/24 13:38
Alkaline Phosphatase 79 U/L (38-126) 05/28/24 13:38
Lipase 127 U/L (23-300) 05/28/24 13:38
Data Reviewed
-
Lab Data: Labs Reviewed by me
Impression/Plan
-
# Indigestion likely NSTEMI
#recent ACS/NSTEMI
-recent cath in February (2023) with Multi-vessel coronary artery disease status-post CABG with 3/4 grafts occluded (TIERNEY-OSEI, MALIHA-OM, SVG-RPDA). The SVG-RPDA looks acute and is likely the culprit for the patient's presentation. A widely patent
radial-diagonal supplies excellent flow to the LAD system which subsequently supplies collaterals to the RPDA.
2. Left heart catheterization demonstrates normal LV filling pressure and no aortic stenosis on pullback.
-Trop 0.321
-EKG ST depression,incomplete bundle branch block,T wave inversion
- initiated on IV heparin
-asa continued
-trend trop
-Cardiology consulted
# Anemia of chronic disease
-Hemoglobin stable at 11.2
-Continue to monitor
#Benign Hypertension
-Norvasc continued with hold parameter
-metoprolol continued
#HLD
-statin
#DM-II
- Stable. Continue sliding scale
- Hold metformin
-hold Lantus
#GERD / Hiatal Hernia
#Schatzki's Ring
- Continue PPI
COPD without Acute Exacerbation
- Stable
-continue home medication
#BPH
-Flomax continued
-bethanechol continued
#DVT prophylaxis
-on heparin drip
#CODE status
-full code
[2024-05-28 14:24] LABS: Troponin I 0.283 ng/ml
--- NOTE | 2024-05-28 15:06 | W.PN.UPDATE ---
Update Note
Progress Note Update
This is an addendum to the H&P written by Izzy Del Valle on 05/28/2024. Patient seen and examined independently with DIRECTOR INBOUND SALES.
83-year-old male past medical history of triple-vessel CAD status post CABG, NSTEMI secondary to occluded CABG grafts managed medically, hypertension, type 2 diabetes, GERD, hiatal hernia, Schatzki's ring, COPD, BPH, presenting with indigestion
similar to recent presentation for NSTEMI in February when he was managed medically. He had outpatient troponin which was 0.3.
No symptoms currently. EKG showing incomplete right bundle branch show, ST depressions, T wave inversions in lateral leads concerning for NSTEMI.
Continue aspirin. Heparin drip. Cardiology consulted.
Blood sugar of 67 so hold Lantus. Moderate insulin sliding scale.
[2024-05-28 15:07] LABS: APTT 30.8 Sec (23.4-35.0)
[2024-05-28] MEDS: HEPARIN 4000 UNITS IV (15:46)
[2024-05-28] MEDS: HEPARIN 25000 UNITS/250 ML IV (15:51)
[2024-05-28] MEDS: URECHOLINE 25 MG PO (21:50)
[2024-05-28] MEDS: RANEXA EXTENDED RELEASE 500 MG PO (21:51)
[2024-05-28] MEDS: LOVENOX 80 MG SC (22:14)
[2024-05-28] MEDS: LIPITOR 40 MG PO (22:15)
[2024-05-28] MEDS: PLAVIX 75 MG PO (22:15)
[2024-05-28] MEDS: OCUVITE SOFTGEL 1 CAP PO (22:15)
[2024-05-28] MEDS: ASPIRIN 325 MG PO (22:15)
[2024-05-28] MEDS: PEPCID 40 MG PO (22:15)
[2024-05-28] MEDS: TOPROL XL 12.5 MG PO (22:17)
[2024-05-28] MEDS: MOBIC 15 MG PO (22:17)
[2024-05-28 22:28] LABS: APTT 51.6 Sec (23.4-35.0)
--- NOTE | 2024-05-28 22:33 | PTCARENOTE ---
Received patient from ED. SR on the monitor with a BBB. HR in the 70s. VSS. Oriented pt to room and discussed plan of care. Pt verbalizes understanding. No complaints from pt at this time. Call godinez within reach.
[2024-05-28 22:43] LABS: Troponin I 0.137 ng/ml
[2024-05-29 04:20] VITALS: BP 141/86
[2024-05-29 04:44] LABS: Hematocrit 33.3 % (39.0-52.0); Hemoglobin 10.8 g/dL (13.0-18.0); Mean Corp Hgb Conc. 32.4 g/dL (33.0-37.0); Mean Corpuscular Hgb 25.4 pg (27.0-31.0); Mean Corpuscular Volume 78.2 fL (80.0-94.0); Mean Platelet Volume 10.2 fL (7.4-10.4); Platelet Count 181 10^3/uL (130-400); Red Blood Cell Count 4.26 10^6/uL (4.70-6.10); Red Cell Dist. Width 14.6 % (11.5-14.5); White Blood Cell Count 5.2 10^3/uL (4.8-10.8)
[2024-05-29 05:16] LABS: Blood Urea Nitrogen 21 mg/dl (9-20); Calcium 9.5 mg/dl (8.4-10.2); Carbon Dioxide 22 mmol/L (22-30); Chloride 107 mmol/L (98-107); Estimated Creatinine Clearance 60 ml/min; Glucose 100 mg/dl (70-99); HDL Cholesterol 28 mg/dl; LDL Cholesterol, Calculated 52 mg/dl; Potassium 4.3 mmol/L (3.5-5.1); Sodium 142 mmol/L (135-145); Total Cholesterol 121 mg/dl (50-199); Triglyceride 206 mg/dl (10-149); Very Low Density Lipoprotein 41 mg/dl (0-30); eGFR > 60.00
[2024-05-29] MEDS: LOVENOX 80 MG SC ×2 (05:35→16:57)
[2024-05-29] MEDS: URECHOLINE 25 MG PO (05:36)
[2024-05-29 05:38] VITALS: BMI 27.3
--- NOTE | 2024-05-29 06:42 | W.PN.HOSP.TC ---
Today's Communication/Plan
-
f/w cardiology recommendation
Pt is on full dose Lovenox.
Assessment / Plan
Assessment / Plan
Physical Exam
General: Well Developed, Well Nourished and No Apparent Distress
HEENT: NormoCephalic, Moist mucous membranes and Atraumatic
Respiratory: Clear
Cardiac: S1/S2 and Regular Rhythm; No Murmur or Rub
GI: Soft, Non Tender, Non Distended and Normal Bowel Sounds; No Organomegaly
Rectal: Deferred by Provider
Musculoskeletal: No Clubbing, No Cyanosis and No Edema
Skin: No Rash
Neuro: AO x 3 and Nonfocal/grossly intact
Psych: Calm
# NSTEMI
#recent ACS/NSTEMI
-recent cath in February (2023) with Multi-vessel coronary artery disease status-post CABG with 3/4 grafts occluded (TIERNEY-OSEI, MALIHA-OM, SVG-RPDA). The SVG-RPDA looks acute and is likely the culprit for the patient's presentation. A widely patent
radial-diagonal supplies excellent flow to the LAD system which subsequently supplies collaterals to the RPDA.
2. Left heart catheterization demonstrates normal LV filling pressure and no aortic stenosis on pullback.
-Trop 0.321
-EKG ST depression,incomplete bundle branch block,T wave inversion
- initiated on IV heparin
-asa continued
-trend trop
-Cardiology consulted, per engineering drafter: -He has been struggling with angina (indigestion seems to be his anginal equivalent), c/w isosorbide & amlodipine, increase metoprolol to 25 mg daily, Plavix. Started ranolazine. Will verify the medications
with engineering drafter.
# Anemia of chronic disease
-Hemoglobin stable at 11.2
-Continue to monitor
#Benign Hypertension
-Norvasc continued with hold parameter
-metoprolol continued
#HLD
-statin
#DM-II
- Stable. Continue sliding scale
- Hold metformin
-hold Lantus
#GERD / Hiatal Hernia
#Schatzki's Ring
- Continue PPI
COPD without Acute Exacerbation
- Stable
-continue home medication
#BPH
-Flomax continued
-bethanechol continued
#DVT prophylaxis
-on heparin drip
#CODE status
-full code
Total time spent to see the patient, examine the patient on the floor, review data and lab results, discuss treatment plan with patient, nursing staff around 55 minutes
Anticipated Discharge: > 48 hours
Subjective/Interval History
-
Date of Service: May 29, 2024
No chest pain
No sob
He feels better
Objective Data
-
Labs:
Laboratory Results
05/28/24 05/29/24
22:10 04:27
WBC 5.2
Hgb 10.8 L
Hct 33.3 L
Plt Count 181
APTT 51.6 H
Sodium 142
Potassium 4.3
Chloride 107
Carbon Dioxide 22
BUN 21 H
Creatinine 0.9
Glucose 100 H
Calcium 9.5
Vital Signs:
Vital Signs
Temp Pulse Resp BP Pulse Ox
98.1 F 63 18 141/86 96
05/29/24 04:20 05/29/24 05:00 05/29/24 04:20 05/29/24 04:20 05/29/24 04:20
[2024-05-29 07:30] LABS: Glucose - Point of Care 114 mg/dl (70-99)
[2024-05-29 08:03] VITALS: BP 148/63
[2024-05-29] MEDS: OCUVITE SOFTGEL 1 CAP PO (09:00)
[2024-05-29] MEDS: IMDUR (EXTENDED RELEASE) 90 MG PO (09:01)
[2024-05-29] MEDS: RANEXA EXTENDED RELEASE 500 MG PO (09:12)
[2024-05-29] MEDS: PROTONIX 40 MG PO (09:12)
[2024-05-29] MEDS: NORVASC 10 MG PO (09:13)
[2024-05-29] MEDS: ASPIR LOW (ENTERIC COATED) 81 MG PO (09:13)
[2024-05-29] MEDS: PLAVIX 75 MG PO (09:15)
--- NOTE | 2024-05-29 09:41 | W.PN.CD ---
Today's Communication / Plan
-
Continue current therapy for NSTEMI and CAD
Check on pricing of Lovenox. If reasonable cost, he can go home today and give himself a dose tonight
Impression / Plan
-
Elijah Bronson is an 83-year-old gentleman with coronary artery disease (CABG 2003, NSTEMI 2023), hypertension, dyslipidemia, bifasicular block (2021), and diabetes who presents for chest discomfort concerning for NSTEMI.
Non-ST elevation myocardial infarction
-Trop 0.3 -> 0.2 -> 0.137
-He had a left heart catheterization in February showing 3/4 grafts occluded with no targets for revascularization
-We will plan to medically manage
-Switch heparin to Lovenox for 48 hours of anticoagulation (he may be able to do his last dose tonight at home, will check with case management about pricing)
-Continue aspirin and atorvastatin 40; LDL at goal
-Start clopidogrel given concern for ACS (should be continued for 1 year)
-Follow-up echocardiogram
-Travel recommendations outlined below
Coronary artery disease
-He has been struggling with angina (indigestion seems to be his anginal equivalent)
-Continue outpatient isosorbide and amlodipine 10 mg
-Increase metoprolol to 25 mg daily
-Start ranolazine
-Consider PRE PRESS PROOFER as an outpatient if medical management is ineffective
He and his are planning to take a cruise in [place] starting on Sunday 06/03. We spoke extensively about the risk/benefit surrounding this trip. I do think he had a small type I NSTEMI on Saturday evening (peak troponin 0.3). His troponin
is orders of magnitude lower than it was during his NSTEMI in February. I do not think he would benefit from repeat cardiac catheterization given that he had no targets for intervention on his last cath, and he is unlikely to have a new large vessel
occlusion given his low level troponin, brief symptoms, and no events on telemetry. We will repeat an echocardiogram today to ensure no change in systolic function and no new large wall motion abnormalities. If his echocardiogram is stable, I
think that he is at a reasonable risk to travel. We have added clopidogrel to his regimen and increased his metoprolol, both of which will mitigate his risk of future events. I have advised him to bring all of his medications with extra doses. I
have also given him my personal cell phone number which he can use if the need arises.
Subjective: Feels well today. No cardiovascular complaints. No 'indigestion'. No events on telemetry.
Physical Exam
Vital Signs/Labs
Vital Signs
Temp Pulse Resp BP Pulse Ox
98.0 F 64 18 148/63 96
05/29/24 08:04 05/29/24 08:30 05/29/24 08:04 05/29/24 08:03 05/29/24 09:20
05/28/24 05/29/24 05/30/24
06:59 06:59 06:59
Actual Weight 79.1 kg
05/29/24 04:27
05/29/24 04:27
APTT 51.6 Sec (23.4-35.0) H 05/28/24 22:10
Magnesium 1.8 mg/dl (1.6-2.3) 05/28/24 13:38
Triglycerides 206 mg/dl (10-149) H 05/29/24 04:27
LDL Cholesterol, Calc 52 mg/dl 05/29/24 04:27
VLDL Cholesterol, Calc 41 mg/dl (0-30) H 05/29/24 04:27
HDL Cholesterol 28 mg/dl 05/29/24 04:27
LAB Results
05/28/24 05/28/24 05/28/24
13:39 20:27 22:10
Troponin I 0.283 H* 0.160 H* D 0.137 H*
Physical Exam
Constitutional: No acute distress and Comfortable
Cardiovascular: Rhythm & rate is regular, Pedal edema is absent, JVD pressure is normal, S1S2 is normal and Murmur/rub/gallop absent
Respiratory: Respiratory effort normal
Data Reviewed
-
Date of Service: May 29, 2024
Medical Decision Making: Reviewed Test Results, Tests Ordered, Independent Historian Assessment, Test Interpretation and Review of Case with other Provider
EKG: Tracing Personally Visualized and interpreted
Echo: Report Reviewed by me
X-Ray/CT/US/MRI/NUC/PET: Report Reviewed by me
Labs: Labs Reviewed by me
[2024-05-29 11:26] VITALS: BP 140/77
--- NOTE | 2024-05-29 12:15 | CM ---
Priced Lovenox x1 syringe from patient's RX plan thru [facility] [phone], estimated that patient is responsible for 45% of total cost, estimated to be $10.
I explained this to patient and he is in agreement w/ cost.
I have confirmed that his pharmacy, [facility] has this in stock.
--- NOTE | 2024-05-29 12:22 | CM ---
CM following for DC planning needs.
Met w/ patient at bedside to complete initial assessment.
Pt. resides w/ spouse in a private, 2 story home. He is functionally indep. at baseline w/ ADLs, mobility without the use of any assisted device.
Pt. has RX plan and uses [facility] in [place] for prescription needs.
Plan is for DC to home without needs. Has transport home.
[2024-05-29 12:27] LABS: Glucose - Point of Care 150 mg/dl (70-99)
--- NOTE | 2024-05-29 14:18 | CARDSERVLU ---
Echocardiogram with [facility] completed after protocol screening completed. Allergies verified.
Patent IV site: _Right median antecubital 20 G PC____
IV site flushed with 0.9% NaCl pre and post administration.
Diluted bolus method utilized to enhance visualization of ventricular arciniega.
Total volume given: ___4_ mL
Patient tolerated all procedures well without complications.
--- NOTE | 2024-05-29 15:26 | W.PN.UPDATE ---
Update Note
Progress Note Update
Discharge planning
Dr. Pablo, butadiene converter helper on-call and patient's primary butadiene converter helper saw the patient. He wanted him to go home on new medication including aspirin, Plavix and Ranexa. Patient received Lovenox, full dose in the hospital, butadiene converter helper discussed
with the patient, patient to take his last dose at home. manager forensic was involved regarding the cause. Prescription was sent to [facility] pharmacy.
I talked to the patient at length. Patient has underlying coronary artery disease. Patient was adamant about going home and he wanted to finish course of Lovenox at home. I counseled the patient regarding signs of symptoms of acute coronary
disease an he verbalized understanding.
--- NOTE | 2024-05-29 16:26 | W.DCSUMMARY ---
Discharge Summary
Discharge Data
Date of Admission: 05/28/24
Date of Discharge: 05/29/24
-
Pending Results: No
Hospital Course
83 years old male presented with history of indigestion resembling chest discomfort. He was found to have positive troponin. Patient was evaluated by inspector and clipper. Patient had recent left heart catheterization that showed occluded grafts with no
targets for revascularization. Patient was given full anticoagulation therapy with Lovenox. He had a follow-up echocardiogram that did not show significant changes from his baseline with LVEF 60-65%, no regional wall motion abnormalities.
Patient did not have recurrent indigestion or chest discomfort. Vending Technician recommended to continue with aspirin, statin and added ranolazine and clopidogrel. Patient was advised to remain in the hospital for another night for observation.
Patient refused. Cardiology agreed to discharge planning and to finish the dose of Lovenox at home. Patient remained hemodynamically stable and was discharged in stable condition.
Discharge Plan
-
Patient Disposition: Home (Routine Discharge)
Discharge Diagnosis/Procedures: Non-ST elevation myocardial infarction
Diet: Low Fat
Referrals:
Brian Pablo MD (Ellie) [Active] - 08/04/24 3:20 pm
Zelalem Blood MD [Family Provider] - in one to two weeks
Prescriptions:
New
enoxaparin 80 mg/0.8 mL Syringe
80 mg SC ONCE Qty: 1 0RF
clopidogrel 75 mg Tablet
75 mg PO DAILY Qty: 30 0RF
ranolazine 500 mg Tablet Extended Release 12 Hr
500 mg PO BID Qty: 60 0RF
Continued
insulin glargine [Lantus U-100 Insulin] 1,000 UNITS/10 ML solution
70 units SC HS
aspirin 81 MG tablet,delayed release (DR/EC)
81 mg PO DAILY
amlodipine 5 MG tablet
10 mg PO DAILY
PreserVision AREDS-2 250-90-40-1 mg Tablet,Chewable
1 tab PO BID
pantoprazole 40 mg tablet,delayed release (DR/EC)
40 mg PO DAILY Qty: 30 0RF
famotidine 40 mg Tablet
40 mg PO QPM
acetaminophen [Tylenol Arthritis Pain] 650 mg Tablet Extended Release
1,300 mg PO [id number] PRN (Reason: mild pain)
bethanechol chloride 25 mg Tablet
25 mg PO BID
isosorbide mononitrate 60 mg Tablet Extended Release 24 Hr
90 mg PO DAILY
nitroglycerin 0.4 mg Tablet, Sublingual
0.4 mg SUBLINGUAL [id number] PRN (Reason: chest pain)
metoprolol succinate 25 mg tablet extended release 24 hr
12.5 mg PO HS
metformin 500 mg Tablet Extended Release 24 Hr
1,000 mg PO BID
atorvastatin 40 mg tablet
40 mg PO QPM
calcium carbonate [Tums] 200 mg calcium (500 mg) Tablet,Chewable
400 mg PO BIDPRN PRN (Reason: gerd)
omeprazole 20 mg Tablet,Delayed Release (Dr/Ec)
40 mg PO HSPRN PRN (Reason: gerd)
Discontinued
meloxicam [Mobic] 15 mg Tablet
15 mg PO HS
Discharge Orders:
Discharge Patient (As Directed); Ordered 05/29/24
Ordered By: Hermelinda Marie
Care Plan Goals
Care Plan Goals:
Problem: Readiness for enhanced knowledge related to diagnosis and treatment plan
Goal: Understand your diagnosis and treatment plan needs, including medications if applicable.
Instructions: Know your diagnosis, underlying causes and treatment plan options, including medications if applicable. Consult with your health care team to learn about your diagnosis and treatment plan, including medications if applicable.
Discharge Date and Time
Discharge Date/Time: 05/29/24 17:20
Print Language: LITHUANIAN
[2024-05-29 16:27] VITALS: BP 144/87
--- NOTE | 2024-05-29 17:51 | PTCARENOTE ---
Pt denied any discomfort, walking in halls without problem. Pt demonstrated good ability to give himself lovenox shot and gave the 17:00 dose tonight. Telemetry and IV device removed. Discharge instructions reviewed with pt and his regarding
medications and their actions and possible side effects, reporting cares and concerns and follow up appt's. Very good understanding verbalized. Pt escorted out via wheelchair and discharged to home.
== END 2024-05-29 17:20 | disposition home or self-care (01) | DRG 281 ==
LOC: IVU 14:58
PROVIDERS: Registered Nurse; ADMITTING PHYSICIAN Hospitalist; ATTENDING PHYSICIAN Internal Medicine; CONSULT PHYSICIAN Student in an Organized Health Care Education/Training Program; EMERGENCY PHYSICIAN Emergency Medicine; FAMILY PHYSICIAN Internal Medicine
DX: I21.4 Non-ST elevation (NSTEMI) myocardial infarction (principal); I25.810 Atherosclerosis of coronary artery bypass graft(s) without angina pectoris; D63.8 Anemia in other chronic diseases classified elsewhere; E11.9 Type 2 diabetes mellitus without complications; I10 Essential (primary) hypertension; J44.9 Chronic obstructive pulmonary disease, unspecified; K76.0 Fatty (change of) liver, not elsewhere classified; K22.2 Esophageal obstruction; I45.4 Nonspecific intraventricular block; I25.10 Atherosclerotic heart disease of native coronary artery without angina pectoris; E78.00 Pure hypercholesterolemia, unspecified; I48.0 Paroxysmal atrial fibrillation; K21.9 Gastro-esophageal reflux disease without esophagitis; K44.9 Diaphragmatic hernia without obstruction or gangrene; M19.90 Unspecified osteoarthritis, unspecified site; N40.0 Benign prostatic hyperplasia without lower urinary tract symptoms; I25.2 Old myocardial infarction; Z95.1 Presence of aortocoronary bypass graft; Z79.4 Long term (current) use of insulin; Z79.84 Long term (current) use of oral hypoglycemic drugs; Z79.82 Long term (current) use of aspirin; Z79.899 Other long term (current) drug therapy; Z87.891 Personal history of nicotine dependence
CPT/HCPCS: 93308; 36415; 80048; 80053; 80061; 80076; 82962; 83690; 83735; 84484; 85025; 85027; 85730; 93005; 93321; 93325; 99285; G0422; Q9950

== ENCOUNTER 2024-06-26 08:41 | Outpatient (RCR) | payer MEDICARE, SELFPAY ==
[2024-06-15 06:36] LABS: Glucose - Point of Care 145 mg/dl (70-99)
[2024-06-15 07:18] LABS: Glucose - Point of Care 120 mg/dl (70-99)
[2024-06-17 06:36] LABS: Glucose - Point of Care 120 mg/dl (70-99)
[2024-06-17 07:23] LABS: Glucose - Point of Care 138 mg/dl (70-99)
== END 2024-06-26 23:59 | disposition home or self-care (01) ==
LOC: CRHB 08:41
PROVIDERS: ATTENDING PHYSICIAN Internal Medicine Cardiovascular Disease; FAMILY PHYSICIAN Internal Medicine
DX: I21.4 Non-ST elevation (NSTEMI) myocardial infarction (principal)
CPT/HCPCS: 82962; G0422

== ENCOUNTER 2024-07-08 08:43 | Outpatient (RCR) | payer MEDICARE, SELFPAY | END 2024-07-10 23:59 | disposition home or self-care (01) | LOC: CRHB 08:43 | PROVIDERS: ATTENDING PHYSICIAN Internal Medicine Cardiovascular Disease; FAMILY PHYSICIAN Internal Medicine | DX: I21.4 Non-ST elevation (NSTEMI) myocardial infarction (principal) | CPT/HCPCS: G0422 ==

== ENCOUNTER 2024-07-27 08:45 | Outpatient (RCR) | payer MEDICARE, SELFPAY ==
[2024-07-13 15:11] LABS: Glucose - Point of Care 96 mg/dl (70-99)
[2024-07-13 15:51] LABS: Glucose - Point of Care 163 mg/dl (70-99)
[2024-07-15 06:32] LABS: Glucose - Point of Care 129 mg/dl (70-99)
[2024-07-15 07:22] LABS: Glucose - Point of Care 156 mg/dl (70-99)
[2024-07-17 06:26] LABS: Glucose - Point of Care 163 mg/dl (70-99)
[2024-07-17 07:14] LABS: Glucose - Point of Care 121 mg/dl (70-99)
[2024-07-20 06:21] LABS: Glucose - Point of Care 147 mg/dl (70-99)
[2024-07-20 07:15] LABS: Glucose - Point of Care 146 mg/dl (70-99)
[2024-07-24 06:22] LABS: Glucose - Point of Care 143 mg/dl (70-99)
[2024-07-24 07:13] LABS: Glucose - Point of Care 103 mg/dl (70-99)
[2024-07-27 06:27] LABS: Glucose - Point of Care 148 mg/dl (70-99)
[2024-07-27 07:11] LABS: Glucose - Point of Care 112 mg/dl (70-99)
== END 2024-07-27 23:59 | disposition home or self-care (01) ==
LOC: CRHB 08:45
PROVIDERS: ATTENDING PHYSICIAN Student in an Organized Health Care Education/Training Program
DX: I21.4 Non-ST elevation (NSTEMI) myocardial infarction (principal); I25.2 Old myocardial infarction; I25.10 Atherosclerotic heart disease of native coronary artery without angina pectoris
CPT/HCPCS: 82962; G0422; G0423

== ENCOUNTER 2024-08-05 04:14 | Emergency (ER) | payer MEDICARE, SELFPAY ==
[2024-08-05 04:22] VITALS: BP 154/56
[2024-08-05 04:33] VITALS: BP 154/56
[2024-08-05 04:34] VITALS: BMI 27.6
[2024-08-05 05:00] VITALS: BP 140/55
--- NOTE | 2024-08-05 05:22 | ED.GENMED ---
History of Present Illness
General
Chief Complaint: Nasal Problem
Source: patient and spouse
Exam Limitations: none
Time Seen by Provider: 08/05/24 04:48
Nursing documentation reviewed up to this point in time: agreed with
History of Present Illness
History of Present Illness:
83-year-old male presents the emergency department with a nosebleed. He states that it started around midnight. The patient reports that his nosebleed initially started on Saturday. He was able to stop the bleeding with direct pressure. He went to
cardiac rehab yesterday at 6 AM and had no issues. Last evening just before midnight the bleeding started again. He tried direct pressure but felt it going down the back of his throat so he came into the emergency department. Upon arrival, he was
given a nasal clamp and at the time of my exam, all bleeding had stopped. Patient is on Plavix. Denies head injury or loss of consciousness.
Past History
Past History
ED Past Medical History: CAD, Hypercholesterolemia, IDDM and Other (prostate: takes tamulosin); Negative MA
ED Past Surgical History: Appendectomy, Cardiac (bypass 2003), Orthopedic and Urological
Social History
Tobacco: Former smoker
Alcohol: None
Drug: None
Personal:
Living: with family
Employment: Retired
Family History
Family History: Diabetes
Review of Systems
Review of Systems
Allergies reviewed?: Yes
Other source history: family
All Other Systems: ROS reviewed and negative except as documented in HPI and ROS
EENT: Reports other (Nosebleed)
Phy Exam
General Physical Exam
General Presentation: well appearing
General age: appears stated age
General Skin: warm and dry
Pulmonary Exam
Pulmonary Exam: lungs clear and no respiratory distress
Neurological Exam
Neurological Exam: alert and oriented x3
Musculoskeletal Exam
Musculoskeletal Exam: full ROM and other (RA signs)
Skin Exam
Skin Exam: normal color and warm/dry
Psychiatric Exam
Psychiatric Exam: normal mood/affect
Course
Vital Signs
Initial and Last Documented VS:
Initial Vital Signs
BP Pulse Ox
154/56 94
08/05/24 04:22 08/05/24 04:22
Last Documented Vital Signs
Temp Pulse Resp BP Pulse Ox
97.4 F 73 20 140/55 95
08/05/24 04:33 08/05/24 04:33 08/05/24 04:33 08/05/24 05:00 08/05/24 05:45
*Critical Care Note
Total Time (30-74mins, 75-104mins- exclusive of procedures): Not Applicable
ED Attending Note
-
Portions of this chart may have been created with voice recognition software.� Occasional wrong word or��sound alike� substitutions may have occurred due to the inherent limitations of voice recognition software.
Discharge Plan
Departure
Patient Disposition: Home (Routine Discharge)
Date of Disposition: 08/05/24
Time of Disposition: 05:50
Patient with high blood pressure during this ER visit?: Yes
Condition: Good
Discharge Problem:
Acute anterior epistaxis
Instructions: Nosebleeds (DC), BLOOD PRESSURE
Prescriptions:
No Action
insulin glargine [Lantus U-100 Insulin] 1,000 UNITS/10 ML solution
70 units SC HS
aspirin 81 MG tablet,delayed release (DR/EC)
81 mg PO DAILY
amlodipine 5 MG tablet
10 mg PO DAILY
PreserVision AREDS-2 250-90-40-1 mg Tablet,Chewable
1 tab PO BID
famotidine 40 mg Tablet
40 mg PO QPM
acetaminophen [Tylenol Arthritis Pain] 650 mg Tablet Extended Release
1,300 mg PO [id number] PRN (Reason: mild pain)
bethanechol chloride 25 mg Tablet
25 mg PO BID
isosorbide mononitrate 60 mg Tablet Extended Release 24 Hr
60 mg PO DAILY
nitroglycerin 0.4 mg Tablet, Sublingual
0.4 mg SUBLINGUAL [id number] PRN (Reason: chest pain)
metoprolol succinate 25 mg tablet extended release 24 hr
12.5 mg PO HS
metformin 500 mg Tablet Extended Release 24 Hr
1,000 mg PO BID
atorvastatin 40 mg tablet
40 mg PO QPM
calcium carbonate [Tums] 200 mg calcium (500 mg) Tablet,Chewable
400 mg PO BIDPRN PRN (Reason: gerd)
clopidogrel 75 mg Tablet
75 mg PO DAILY Qty: 30 0RF
ranolazine 500 mg Tablet Extended Release 12 Hr
500 mg PO BID Qty: 60 0RF
pantoprazole 40 mg tablet,delayed release (DR/EC)
40 mg PO BID
Referrals:
Zelalem Blood MD [Family Provider] -
Lon Hernandez MD [Active] -
Activity Restrictions/Additional Instructions:
It was a pleasure meeting you and taking part in your care. We hope for your continued healing and wellness.
Please read discharge instructions in their entirety. However, they are for general education and may not describe your exact diagnosis at discharge. Information on your ER visit and medical conditions were discussed with you along with appropriate
follow up information...
If indicated, please take your medications as instructed and indicated on discharge paperwork.
Please schedule a follow up appointment as directed. Call to schedule an appointment
Please return to the emergency department with ANY change in, persisting, or worsening of symptoms. If any of your symptoms do not improve, or persist, or become more severe within 6-12 hours, please return to the emergency department for further
care.
Please return to the emergency department if you develop a headache, neck pain/stiffness, fever greater than 100.4F, chest pain, shortness of breath, persistent nausea, vomiting, slurred speech, difficulty walking, numbness/tingling, weakness, signs
of infection or any other symptoms that are worrisome to you.
If you have any questions or concerns please do not hesitate to call the Hospital at or E-mail me directly at [email or web address]
Interventions
Interventions:
*Risk Screen - Suicide Last Done: 08/05/24 04:15
*General Assessment Last Done: 08/05/24 04:25
*Neglect/Abuse Screening Last Done: 08/05/24 04:25
ED- Fall Risk Assessment Last Done: 08/05/24 04:25
*ED COVID-19 Vaccine History Last Done: 08/05/24 04:15
*Nursing Disposition Last Done: 08/05/24 06:00
ED-EENT Assessment Last Done: 08/05/24 04:25
Discharge Date and Time
Discharge Date/Time: 08/05/24 06:00
Print Language: NORWEGIAN
== END 2024-08-05 06:00 | disposition home or self-care (01) ==
LOC: EMR 04:14
PROVIDERS: EMERGENCY PHYSICIAN Student in an Organized Health Care Education/Training Program; FAMILY PHYSICIAN Internal Medicine
DX: R04.0 Epistaxis (principal); R03.0 Elevated blood-pressure reading, without diagnosis of hypertension; Z79.02 Long term (current) use of antithrombotics/antiplatelets; Z87.891 Personal history of nicotine dependence
CPT/HCPCS: 99282

== ENCOUNTER 2024-08-10 02:34 | Emergency (ER) | payer MEDICARE, SELFPAY ==
[2024-08-10 02:37] VITALS: BP 142/74
--- NOTE | 2024-08-10 03:12 | ED.GENMED ---
History of Present Illness
<PRANAY Cedeno - Last Filed: 08/10/24 03:29>
General
Chief Complaint: Nose Bleed
Source: patient
Time Seen by Provider: 08/10/24 02:39
History of Present Illness
History of Present Illness:
This is an 83 y/o male who presents to the ED c/o nose bleed. He states the bleeding began at midnight tonight and he was unable to stop it so he came to the ED. He has been unable to locate which nostril is bleeding. His last nose bleed was 2 days
ago and lasted 30mins - 1hr before it resolved with pressure. He is on Plavix and Aspirin. He was last here in the ED on 08/05/2023 with the same issue, but the bleeding resolved with pressure and clamp only. He has an appointment with ENT Dr. Hernandez
on Saturday (08/11). Denies any personal or family history of bleeding or clotting disorders. Denies N/V/F, cough and abdominal pain.
Past History
<PRANAY Cedeno - Last Filed: 08/10/24 03:29>
Past History
ED Past Medical History: CAD, Hypercholesterolemia, IDDM and Other (prostate: takes tamulosin); Negative MD
ED Past Surgical History: Appendectomy, Cardiac (bypass 2003), Orthopedic and Urological
Social History
Tobacco: Former smoker
Alcohol: None
Drug: None
Personal:
Living: with family
Employment: Retired
Family History
Family History: Diabetes
Phy Exam
<PRANAY Cedeno - Last Filed: 08/10/24 03:29>
Physical Exam
Physical Exam:
Resp: muscle and respiratory effort symmetric without use of accessory muscles; even, quiet breathing
Heart: No lifts or heaves visible; regular rate and rhythm; No murmurs, rubs or gallops
Course
<PRANAY Cedeno - Last Filed: 08/10/24 03:29>
Vital Signs
Initial and Last Documented VS:
Initial Vital Signs
Pulse Resp BP Pulse Ox
80 22 142/74 96
08/10/24 02:37 08/10/24 02:37 08/10/24 02:37 08/10/24 02:37
Last Documented Vital Signs
Pulse Resp BP Pulse Ox
80 22 142/74 96
08/10/24 02:37 08/10/24 02:37 08/10/24 02:37 08/10/24 02:37
<Angelica Butterfield DO - Last Filed: 08/10/24 04:34>
Vital Signs
Initial and Last Documented VS:
Initial Vital Signs
Pulse Resp BP Pulse Ox
80 22 142/74 96
08/10/24 02:37 08/10/24 02:37 08/10/24 02:37 08/10/24 02:37
Last Documented Vital Signs
Pulse Resp BP Pulse Ox
80 22 142/74 96
08/10/24 02:37 08/10/24 02:37 08/10/24 02:37 08/10/24 02:37
Procedures
<Angelica Butterfield DO - Last Filed: 08/10/24 04:34>
Nosebleed
Drug treatment: Lidocaine and Epinephrine
Treatment: Silver nitrate cautery and Merocel packing
Post treatment bleeding: none- good control
<PRANAY Cedeno - Last Filed: 08/10/24 03:29>
*Critical Care Note
Total Time (30-74mins, 75-104mins- exclusive of procedures): Not Applicable
<Angelica Butterfield DO - Last Filed: 08/10/24 04:34>
*Pulse Oximetry
Patient hypoxic: no
ED Attending Note
<PRANAY Cedeno - Last Filed: 08/10/24 03:29>
-
Portions of this chart may have been created with voice recognition software.� Occasional wrong word or��sound alike� substitutions may have occurred due to the inherent limitations of voice recognition software.
<Angelica Butterfield DO - Last Filed: 08/10/24 04:34>
ED Attending Note
Patient seen and examined by attending physician: Yes
I performed the substantive portion of visit, reviewed & personally made and approve the management plan that is documented in note by myself or CAPRI.: Yes
ED Attending Note:
This is an 83-year-old gentleman who has history of CAD status post non-STEMI, maintained on Plavix and aspirin.
He presents with recurrent epistaxis that initially began 5 days ago. Evaluated in this ED at that time. Epistaxis resolved with local pressure. No further intervention required.
Since that time he has had intermittent bleeding 2 days after discharge from the ED and then again tonight beginning around midnight.
He does note similar intermittent epistaxis over the past several months, and follows with ENT, Dr. Hernandez and has had previous local cautery procedures most recently March 2024.
He has an appointment with Dr. Hernandez scheduled for tomorrow, August 11.
He denies dizziness nor lightheadedness, no nausea nor vomiting, no headache, no sore throat. He is unsure if he has been bleeding from the right nor left nostril.
GENERAL: 83-year-old gentleman appears his stated age, awake and alert, pleasant, appears in no acute distress. Nasal clip in place. No active epistaxis.
EYE: . anicteric
NECK: Supple, nontender, no meningismus, no significant adenopathy.
ENT: Posterior pharynx scantly coated with dark maroon blood but no active bleeding noted posteriorly. No active epistaxis, no clots within nasal passages. Left nostril is clear. Right nostril has scant blood entrance to the nasal nic and
moderate erythema along the septum just posterior to Kiesselbach's plexus.
CARDIAC: Regular rate and rhythm. no murmur.
LUNGS: no acute respiratory distress
ABDOMEN: Soft, nondistended, without focal tenderness
NEUROLOGICAL: Alert and oriented x3, no focal neuro deficits. Gait is ruelas and steady.
SKIN: Warm and dry, mildly pale in color, skin intact. No rash.
MUSCULOSKELETAL: No C/C/E. peripheral pulses are full and equal b/l. No palpable tenderness.
PSYCH: Normal and appropriate interaction.
Patient presents with recurrent epistaxis over the past 5 days, overall brief in nature and has stopped with local pressure.
Exam remarkable for scant blood right nasal nic entrance and erythema to mid aspect of the septum. No active bleeding.
Right nasal passage will be anesthetized and decongested with topical lidocaine/topical epinephrine soaked cotton pledget.
03:40
Thus far patient has had no recurrent bleeding.
Silver nitrate cautery to pinpoint erythematous area right anterior septum.
Due to recurrent episodes of epistaxis over the past several days, Merocel packing sponge inserted into right nostril.
Patient tolerated procedure well.
Remains hemodynamically stable.
Will continue to observe.
Discharge Plan
Departure
Patient Disposition: Home (Routine Discharge)
Date of Disposition: 08/10/24
Time of Disposition: 04:32
Patient with high blood pressure during this ER visit?: No
Condition: Good
Discharge Problem:
Recurrent epistaxis R nostril
Instructions: Nosebleeds (DC)
Prescriptions:
No Action
insulin glargine [Lantus U-100 Insulin] 1,000 UNITS/10 ML solution
70 units SC HS
aspirin 81 MG tablet,delayed release (DR/EC)
81 mg PO DAILY
amlodipine 5 MG tablet
10 mg PO DAILY
PreserVision AREDS-2 250-90-40-1 mg Tablet,Chewable
1 tab PO BID
famotidine 40 mg Tablet
40 mg PO QPM
acetaminophen [Tylenol Arthritis Pain] 650 mg Tablet Extended Release
1,300 mg PO [id number] PRN (Reason: mild pain)
bethanechol chloride 25 mg Tablet
25 mg PO BID
isosorbide mononitrate 60 mg Tablet Extended Release 24 Hr
60 mg PO DAILY
nitroglycerin 0.4 mg Tablet, Sublingual
0.4 mg SUBLINGUAL [id number] PRN (Reason: chest pain)
metoprolol succinate 25 mg tablet extended release 24 hr
12.5 mg PO HS
metformin 500 mg Tablet Extended Release 24 Hr
1,000 mg PO BID
atorvastatin 40 mg tablet
40 mg PO QPM
calcium carbonate [Tums] 200 mg calcium (500 mg) Tablet,Chewable
400 mg PO BIDPRN PRN (Reason: gerd)
clopidogrel 75 mg Tablet
75 mg PO DAILY Qty: 30 0RF
ranolazine 500 mg Tablet Extended Release 12 Hr
500 mg PO BID Qty: 60 0RF
pantoprazole 40 mg tablet,delayed release (DR/EC)
40 mg PO BID
Referrals:
Zelalem Blood MD [Family Provider] -
Lon Hernandez MD [Active] - Tomorrow
Interventions
Interventions:
*Risk Screen - Suicide Last Done: 08/10/24 02:35
*General Assessment Last Done: 08/10/24 03:13
*Neglect/Abuse Screening Last Done: 08/10/24 02:35
ED- Fall Risk Assessment Last Done: 08/10/24 03:13
*ED COVID-19 Vaccine History Last Done: 08/10/24 03:13
ED-EENT Assessment Last Done: 08/10/24 03:13
Discharge Date and Time
Print Language: BAHRAINI
[2024-08-10 03:13] VITALS: BMI 27.3
[2024-08-10 05:24] VITALS: BP 126/59
== END 2024-08-10 04:45 | disposition home or self-care (01) ==
LOC: EMR 02:34
PROVIDERS: EMERGENCY PHYSICIAN Emergency Medicine; FAMILY PHYSICIAN Internal Medicine
DX: R04.0 Epistaxis (principal); I25.10 Atherosclerotic heart disease of native coronary artery without angina pectoris; Z87.891 Personal history of nicotine dependence; Z79.02 Long term (current) use of antithrombotics/antiplatelets
CPT/HCPCS: 99282; 30901

== ENCOUNTER 2024-08-28 08:42 | Outpatient (RCR) | payer MEDICARE, SELFPAY ==
[2024-07-31 06:26] LABS: Glucose - Point of Care 148 mg/dl (70-99)
[2024-07-31 07:14] LABS: Glucose - Point of Care 101 mg/dl (70-99)
== END 2024-08-28 23:59 | disposition home or self-care (01) ==
LOC: CRHB 08:42
PROVIDERS: ATTENDING PHYSICIAN Student in an Organized Health Care Education/Training Program; FAMILY PHYSICIAN Internal Medicine
DX: I25.10 Atherosclerotic heart disease of native coronary artery without angina pectoris (principal); I25.2 Old myocardial infarction
CPT/HCPCS: 82962; G0422

== ENCOUNTER → 2024-09-19 08:59 | Outpatient (REF) | payer MEDICARE, SELFPAY ==
[2024-09-19 10:37] LABS: Hematocrit 33.4 % (39.0-52.0); Hemoglobin 10.3 g/dL (13.0-18.0); Mean Corp Hgb Conc. 30.8 g/dL (33.0-37.0); Mean Corpuscular Hgb 24.8 pg (27.0-31.0); Mean Corpuscular Volume 80.5 fL (80.0-94.0); Mean Platelet Volume 9.8 fL (7.4-10.4); Platelet Count 236 10^3/uL (130-400); Red Blood Cell Count 4.15 10^6/uL (4.70-6.10); Red Cell Dist. Width 15.2 % (11.5-14.5); White Blood Cell Count 5.3 10^3/uL (4.8-10.8)
[2024-09-19 11:31] LABS: TSH Reflex To Free T4 1.36 uIU/ml (0.47-4.68)
== END ==
LOC: REG 08:59
PROVIDERS: ATTENDING PHYSICIAN Nurse Practitioner; FAMILY PHYSICIAN Internal Medicine; REFERRING PHYSICIAN Student in an Organized Health Care Education/Training Program
DX: R06.02 Shortness of breath (principal); R53.83 Other fatigue; I10 Essential (primary) hypertension
CPT/HCPCS: 36415; 71046; 84443; 85027

== ENCOUNTER 2024-09-25 08:42 | Outpatient (RCR) | payer MEDICARE, SELFPAY | END 2024-09-25 23:59 | disposition home or self-care (01) | LOC: CRHB 08:42 | PROVIDERS: ATTENDING PHYSICIAN Student in an Organized Health Care Education/Training Program; FAMILY PHYSICIAN Internal Medicine | DX: I21.4 Non-ST elevation (NSTEMI) myocardial infarction (principal); I25.2 Old myocardial infarction (principal); I25.10 Atherosclerotic heart disease of native coronary artery without angina pectoris (principal) | CPT/HCPCS: G0422 ==

== ENCOUNTER → 2024-10-06 08:48 | Outpatient (REF) | payer MEDICARE, SELFPAY ==
[2024-10-06 12:55] LABS: % Basophils 1.2 % (0-2); % Eosinophils 2.8 % (0-6); % Immature Granulocytes 0.2 % (0-0.5); % Monocytes 13.6 % (1.7-9.3); % Neutrophils 59.2 % (42.2-75.2); Absolute Basophils 0.1 10^3/uL (0-0.2); Absolute Eosinophils 0.2 10^3/uL (0-0.7); Absolute Lymphocytes 1.3 10^3/uL (1.2-3.4); Absolute Monocytes 0.8 10^3/uL (0.1-0.6); Absolute Neutrophils 3.4 10^3/uL (1.4-6.5); Hematocrit 33.5 % (39.0-52.0); Hemoglobin 10.2 g/dL (13.0-18.0); Mean Corp Hgb Conc. 30.4 g/dL (33.0-37.0); Mean Corpuscular Hgb 24.3 pg (27.0-31.0); Nucleated Red Blood Cells % 0 % (-); Platelet Count 246 10^3/uL (130-400); Red Blood Cell Count 4.19 10^6/uL (4.70-6.10); Red Cell Dist. Width 15.4 % (11.5-14.5); White Blood Cell Count 5.7 10^3/uL (4.8-10.8)
[2024-10-06 13:07] LABS: Glycohemoglobin (HgbA1c) 6.7 % (4.0-5.6)
[2024-10-06 13:39] LABS: ALT (SGPT) 14 U/L (0-50); AST (SGOT) 19 U/L (17-59); Albumin 4.7 g/dl (3.5-5.0); Alkaline Phosphatase 74 U/L (38-126); Blood Urea Nitrogen 19 mg/dl (9-20); Calcium 9.5 mg/dl (8.4-10.2); Carbon Dioxide 26 mmol/L (22-30); Chloride 103 mmol/L (98-107); Glucose 85 mg/dl (70-99); HDL Cholesterol 27 mg/dl; LDL Cholesterol, Calculated 42 mg/dl; Potassium 4.6 mmol/L (3.5-5.1); Sodium 141 mmol/L (135-145); Total Bilirubin 0.7 mg/dl (0.2-1.3); Total Cholesterol 115 mg/dl (50-199); Total Protein 7.4 g/dl (6.3-8.2); Triglyceride 234 mg/dl (10-149); Very Low Density Lipoprotein 46 mg/dl (0-30); eGFR > 60.00
== END ==
LOC: HWLAB 08:48
PROVIDERS: ATTENDING PHYSICIAN Internal Medicine
DX: E11.59 Type 2 diabetes mellitus with other circulatory complications (principal); I25.10 Atherosclerotic heart disease of native coronary artery without angina pectoris; I25.9 Chronic ischemic heart disease, unspecified; Z00.01 Encounter for general adult medical examination with abnormal findings
CPT/HCPCS: 36415; 80053; 80061; 83036; 85025

== ENCOUNTER 2024-10-09 08:53 | Outpatient (RCR) | payer MEDICARE, SELFPAY | END 2024-10-09 08:59 | disposition home or self-care (01) | LOC: CRHB 08:53 | PROVIDERS: ATTENDING PHYSICIAN Student in an Organized Health Care Education/Training Program; FAMILY PHYSICIAN Internal Medicine | DX: I21.4 Non-ST elevation (NSTEMI) myocardial infarction (principal); I25.10 Atherosclerotic heart disease of native coronary artery without angina pectoris (principal); I25.2 Old myocardial infarction | CPT/HCPCS: G0422; G0423 ==

== ENCOUNTER → 2025-02-04 09:24 | Outpatient (REF) | payer MEDICARE, SELFPAY ==
--- NOTE | 2025-02-04 10:51 | CARDSERVDEF ---
Echocardiogram with Definity completed after protocol screening completed. Allergies verified.
Patent IV site: _left AC____
IV site flushed with 0.9% NaCl pre and post administration.
Diluted bolus method utilized to enhance visualization of ventricular arciniega.
Total volume given: __2.0__ mL
Patient tolerated all procedures well without complications.
#22 roselia placed left AC. Definity given. INT d/c'd. pressure held. No bleeding noted.
== END ==
LOC: RCS 09:24
PROVIDERS: ATTENDING PHYSICIAN Student in an Organized Health Care Education/Training Program; FAMILY PHYSICIAN Internal Medicine
DX: I25.10 Atherosclerotic heart disease of native coronary artery without angina pectoris (principal); R07.9 Chest pain, unspecified
CPT/HCPCS: 93017; 93350; Q9957

== ENCOUNTER → 2025-02-08 08:14 | Outpatient (REF) | payer MEDICARE, SELFPAY ==
[2025-02-08 10:20] LABS: Glycohemoglobin (HgbA1c) 6.6 % (4.0-5.6)
[2025-02-08 10:22] LABS: ALT (SGPT) 11 U/L (0-50); AST (SGOT) 17 U/L (17-59); Albumin 4.6 g/dl (3.5-5.0); Alkaline Phosphatase 74 U/L (38-126); Glucose 72 mg/dl (70-99); HDL Cholesterol 27 mg/dl; LDL Cholesterol, Calculated 57 mg/dl; Total Protein 7.4 g/dl (6.3-8.2); Very Low Density Lipoprotein 44 mg/dl (0-30)
== END ==
LOC: HWLAB 08:14
PROVIDERS: ATTENDING PHYSICIAN Internal Medicine
DX: E11.59 Type 2 diabetes mellitus with other circulatory complications (principal); Z79.4 Long term (current) use of insulin; I10 Essential (primary) hypertension; E78.5 Hyperlipidemia, unspecified
CPT/HCPCS: 36415; 80061; 80076; 82947; 83036

== ENCOUNTER → 2025-06-15 08:51 | Outpatient (REF) | payer MEDICARE, SELFPAY ==
[2025-06-15 12:09] LABS: Hematocrit 37.1 % (39.0-52.0); Hemoglobin 10.8 g/dL (13.0-18.0); Mean Corp Hgb Conc. 29.1 g/dL (33.0-37.0); Mean Corpuscular Volume 80.3 fL (80.0-94.0); Nucleated Red Blood Cells % 0 % (-); Platelet Count 248 10^3/uL (130-400); Red Cell Dist. Width 16.7 % (11.5-14.5)
[2025-06-15 12:16] LABS: ALT (SGPT) 11 U/L (0-50); AST (SGOT) 16 U/L (17-59); Albumin 4.3 g/dl (3.5-5.0); Alkaline Phosphatase 73 U/L (38-126); Glucose 74 mg/dl (70-99); HDL Cholesterol 27 mg/dl; Iron 39 ug/dl (49-181); LDL Cholesterol, Calculated 67 mg/dl; Total Protein 7.4 g/dl (6.3-8.2); Very Low Density Lipoprotein 25 mg/dl (0-30)
[2025-06-15 12:26] LABS: Total Iron Binding Capacity 344 ug/dl (261-462)
[2025-06-15 12:30] LABS: Glycohemoglobin (HgbA1c) 6.6 % (4.0-5.9)
[2025-06-15 13:05] LABS: Vitamin B12 875 pg/ml (239-931)
== END ==
LOC: HWLAB 08:51
PROVIDERS: ATTENDING PHYSICIAN Nurse Practitioner Acute Care
DX: E61.1 Iron deficiency (principal); E11.59 Type 2 diabetes mellitus with other circulatory complications; Z79.4 Long term (current) use of insulin; E78.2 Mixed hyperlipidemia; I10 Essential (primary) hypertension; D64.9 Anemia, unspecified; D50.8 Other iron deficiency anemias; Z79.899 Other long term (current) drug therapy
CPT/HCPCS: 36415; 80061; 80076; 82607; 82947; 83036; 83540; 83550; 85025